=== PATIENT | male | born 1975 | race Caucasian/White ===

== ENCOUNTER → 2016-11-21 | Outpatient (CLI) | payer OTHER ==
[~2016-11-21] MED LIST: ACET-1256 PO; BACL10TA PO; IBUP-1451 PO; morphine INT SPINAL
--- NOTE | 2016-11-21 13:36 | DIAGNOSTIC IMAGING REPORT ---
CERVICAL SPINE 7 VIEWS CLINICAL HISTORY: Chronic neck pain. FINDINGS: AP, lateral, flexion, extension, bilateral oblique, and odontoid views of the cervical spine are obtained. No prior studies are available for comparison at the time of dictation. The skeletal structures are well mineralized. There is no radiographic evidence of fracture or subluxation. The odontoid process and lateral masses appear intact on the open-mouth view. There are postoperative changes from anterior fusion seen from C4 to C6. There is evidence of discectomy at these levels with near complete bony incorporation. There is associated straightening of the cervical lordosis. No inducible bony subluxation is seen on the flexion/extension views. The spinolaminar line is preserved. The atlantodental articulation appears maintained noting mild productive degenerative change. The C2-C3, C3-C4, and C6-C7 disc spaces appear preserved. The spinous processes appear intact. The neural foramina appear widely patent on the oblique views. The prevertebral soft tissues are within normal limits. Partially imaged lung parenchyma appears clear. IMPRESSION: 1. No acute bony abnormality is seen in the cervical spine. 2. No bony subluxation is identified on the flexion/extension views. 3. There are postoperative changes from anterior fusion seen at C4-C6. Dictated: 11/21/2016 1:09 PM Transcribed: 11/21/2016 1:35 PM Jose M Electronically signed by: Jack Blanco M.D. 11/21/2016 1:53 PM Dictated Date/Time: 11/21/2016 1:09 PM
== END | disposition home or self-care (01) ==
LOC: C.RADBC 12:13
PROVIDERS: ATTEND Anesthesiology
DX: M54.2 Cervicalgia (principal); Z98.890 Other specified postprocedural states

== ENCOUNTER → 2016-12-15 | Outpatient (CLI) | payer OTHER ==
[~2016-12-15] MED LIST changes: +EZET10TA63 PO; +GADAVIST IV PRN
--- NOTE | 2016-12-15 09:10 | DIAGNOSTIC IMAGING REPORT ---
CERVICAL SPINE MRI WITH AND WITHOUT CONTRAST HISTORY: Postprocedural pain. Radiculopathy. CERVICAL POST CHAPMAN TECHNIQUE: Multiplanar multisequence MRI of the cervical spine was performed both before and after the use of intravenous contrast. COMPARISON STUDY: None. FINDINGS: Findings consistent anterior cervical fusion at C4-C5 and C6. Alignment is anatomic. Signal characteristics the osseous structures are unremarkable. Vertebral body alignment is within normal limits. Vertebral disc signal is unremarkable. Signal characteristics the cervical cord are unremarkable. C2-C3: No significant central canal or neural foraminal narrowing. C3-C4: No significant central canal or neural foraminal narrowing. C4-C5: Minimal broad-based disc bulge. No significant impact with cervical cord. C5-C6: No significant central canal or neural foraminal narrowing. C6-C7: No significant central canal or neural foraminal narrowing. C7-T1: No significant central canal or neural foraminal narrowing. IMPRESSION: 1. Findings consistent with an anterior cervical fusion from C4 through C6. 2. Alignment is anatomic. 3. Slight broad-based disc bulge C4-C5 showing no significant impact with cervical cord or neural foramina. 4. No evidence for disc herniation or spinal stenosis. Electronically signed by: Brett Bravo M.D. 12/15/2016 9:08 AM Dictated Date/Time: 12/15/2016 9:04 AM
== END | disposition home or self-care (01) ==
LOC: C.MRIBC 07:52
PROVIDERS: ATTEND Physician Assistant
DX: M96.1 Postlaminectomy syndrome, not elsewhere classified (principal); M54.2 Cervicalgia

== ENCOUNTER → 2016-12-19 | Outpatient (CLI) | payer OTHER ==
[~2016-12-19] MED LIST changes: -GADAVIST IV PRN
[2016-12-19 15:10] LABS: CALCIUM 9.2 mg/dl (8.5-10.1)
[2016-12-19 15:12] LABS: ALT/SGPT 32 U/L (12-78); BLOOD UREA NITROGEN 17 mg/dl (7-18); BUN/CREATININE RATIO 15.2 (10-20); CARBON DIOXIDE 31 mmol/L (21-32); CHLORIDE 104 mmol/L (98-107); CHOLESTEROL 198 mg/dl (0-200); GLUCOSE 105 mg/dl (70-99); POTASSIUM 4.3 mmol/L (3.5-5.1); SODIUM 141 mmol/L (136-145); TRIGLYCERIDES 81 mg/dl (0-150); VERY LOW DENSITY LIPOPROT CALC 16 mg/dl
[2016-12-19 15:16] LABS: ALB/GLOB RATIO 1.2 (0.9-2); ALKALINE PHOSPHATASE 82 U/L (45-117); AST/SGOT 16 U/L (15-37); CHOLESTEROL/HDL RATIO 4.4; HDL CHOLESTEROL 45 mg/dl; LDL CHOLESTEROL CALCULATED 137 mg/dl
== END | disposition home or self-care (01) ==
LOC: C.LABBC 08:52
PROVIDERS: ATTEND Family Medicine Sports Medicine
DX: E78.2 Mixed hyperlipidemia (principal)

== ENCOUNTER 2018-01-14 14:27 | Emergency (ER) | payer OTHER ==
[~2018-01-14] VITALS: Ht 175.3 cm; Wt 87.5 kg
[2018-01-14 14:34] VITALS: TEMP 36.5; Ht 175.3 cm; Wt 87.5 kg
[2018-01-14] MEDS ORDERED: DOXYCYCLINE HYCLATE 100 MG CAP PO ONE (15:00)
--- NOTE | 2018-01-14 15:09 | EMERGENCY ROOM VISIT NOTE ---
ED Visit Note First contact with patient: 14:43 CHIEF COMPLAINT: Tick bite HISTORY OF PRESENT ILLNESS: This 42-year-old male patient noticed a tick embedded in his right flank yesterday afternoon. He states he believes the tick was attached for more than 24 hours and noted that it was engorged. He did attempt to remove the tick, but states there are still parts left in the skin. He denies any fevers or chills, unusual rash, joint pain, persistent headaches, chest pain, shortness of breath, abdominal pain, or vomiting. REVIEW OF SYSTEMS: A complete 6 point review of systems was reviewed with the patient with pertinent positives and negatives as per history of present illness. All else were negative. PMH: He reports previous neck surgeries. The patient is otherwise healthy with no significant medical history. SOCIAL HISTORY: Patient lives at home. Non-smoker, occasional alcohol use. PHYSICAL EXAM: Vital Signs: Reviewed Nurse's notes. There is a small zone of inflammation and ecchymosis around the spot where the tick was on the right flank. The skin is otherwise clear. NEUROLOGICAL: Alert and cooperative. Sensory and motor functions grossly intact. ED COURSE: I examined the patient. There is a part of the tick mouth still retained in the skin. I obtained verbal consent from the patient to perform the procedure. Skin was cleansed with chlorhexidine. Using a #15 blade scalpel , took parts of her easily removed. Skin was again cleansed with chlorhexidine , bacitracin ointment and a Band-Aid were applied over the site. Given the unknown amount of time for tick attachment, with concern for greater than 48 hours, patient was treated with a single dose of p.o. doxycycline 200 mg. Patient was educated regarding wound care, follow-up, and return precautions, he verbalized understanding. Patient was discharged home in stable condition and ambulatory. Medication Reconciliation: I attest that I have personally reviewed the patient' s current medication list. Patient was noted to have an elevated blood pressure, which was felt to be situational. Current/Historical Medications Scheduled Baclofen (Lioresal), 10 MG PO PRN UD Ezetimibe (Zetia), 10 MG PO DAILY Multivitamins/Minerals (Mvi With Minerals), 1 TAB PO DAILY [morphine], 0.7651 MG INT SPINAL 24hours Scheduled PRN Ibuprofen (Advil), 600 MG PO Q6H PRN for Pain Allergies Coded Allergies: Methylprednisolone (Verified Allergy, Severe, ANAPHYLAXIS TO STEROID INJECTIONS (TOLERATES PO PREDNISONE), 11/01/17) Pravastatin (Verified Allergy, Unknown, UNKNOWN PER PT, 11/01/17) Simvastatin (Verified Allergy, Unknown, UNKNOWN PER PT, 11/01/17) Cyclobenzaprine (Verified Adverse Reaction, Intermediate, HALLUCINATIONS, 11/01/17) Vital Signs Date Time Temp Pulse Resp B/P (MAP) Pulse Ox O2 Delivery O2 Flow Rate FiO2 01/14/18 15:29 78 18 133/78 97 01/14/18 14:34 36.5 75 18 142/100 97 Room Air Medications Administered Medications (Trade) Dose Ordered Sig/Diandra Route Start Time Stop Time Status Last Admin Dose Admin Doxycycline Hyclate (Vibramycin Cap) 200 mg ONE ONCE PO 01/14/18 15:00 01/14/18 15:01 DC 01/14/18 15:12 200 MG Departure Information Impression Primary Impression: Tick bite Dispostion Home / Self-Care Condition GOOD Referrals Hector Cottrell D.O. (PCP) Patient Instructions ED Bite Tick Abx Tx, ED Facts Tick, My [facility] Additional Instructions You have been evaluated and treated in the emergency department today for your tick bite. Keep the area clean. Monitor for any signs of infection, including increasing pain, redness, swelling, pus drainage, streaking, fevers or chills. Please follow-up with your primary care provider as needed, especially if you would develop any symptoms of headaches, body aches, joint pain, unusual rash, fever/chills, or for any other concerns. Problem Qualifiers Primary Impression: Tick bite Encounter type: initial encounter Qualified Codes: W57.XXXA - Bitten or stung by nonvenomous insect and other nonvenomous arthropods, initial encounter
[2018-01-14] MEDS ORDERED: IBUP-1050 PO (15:10)
[2018-01-14] MEDS ORDERED: MULT-513 PO (15:12)
[2018-01-14 15:29] VITALS: BP 133/78; PULSE 78; O2SAT 97
== END 2018-01-14 15:30 | disposition home or self-care (01) ==
LOC: C.EDB 14:28 → C.EDD 15:30
DX: T14.8XXA Other injury of unspecified body region, initial encounter (principal); W57.XXXA Bitten or stung by nonvenomous insect and other nonvenomous arthropods, initial encounter; Z88.8 Allergy status to other drugs, medicaments and biological substances

== ENCOUNTER 2021-05-04 05:51 | Observation (INO) ==
--- NOTE | 2021-04-19 12:43 | PAT Medication Instructions ---
Medication Instructions Date of Service April 19, 2021 Home Medications Medication Instructions Recorded pantoprazole 40 mg tablet,delayed 40 mg PO BID 30 Days #60 tab 07/08/20 release (Protonix) naloxone 4 mg/actuation nasal spray 1 spray INTRANASAL Q3M PRN #2 ea 09/18/20 ibuprofen 600 mg tablet 600 mg PO TID PRN acetaminophen 325 mg capsule (Tylenol) 325 mg PO Q6H PRN baclofen 500 mcg/mL intrathecal solution 500 mcg IT UD epinephrine 0.3 mg/0.3 mL injection, auto-injector 0.3 ml IM .USE DIRECTED. Antacid Tablet 1 dose PO QAM morphine 1 dose INTRATHECAL UD multivitamin 1 tab PO QAM pantoprazole 40 mg tablet,delayed release (Protonix) 40 mg PO BID naloxone 4 mg/actuation nasal spray 1 spray INTRANASAL Q3M PRN trazodone 100 mg tablet 100 mg PO UD PRN Continue as directed epinephrine 0.3 mg/0.3 mL injection, auto-injector 0.3 ml IM .USE DIRECTED (if needed) naloxone 4 mg/actuation nasal spray 1 spray INTRANASAL Q3M PRN (if needed) baclofen 500 mcg/mL intrathecal solution 500 mcg IT UD morphine 1 dose INTRATHECAL UD ASK your surgeon for instructions ibuprofen 600 mg tablet 600 mg PO TID PRN DO NOT take the morning of surgery Antacid Tablet 1 dose PO QAM multivitamin 1 tab PO QAM Take morning of surgery With a small sip of water, OTHERWISE NOTHING TO EAT OR DRINK AFTER MIDNIGHT: acetaminophen 325 mg capsule (Tylenol) 325 mg PO Q6H PRN (okay to take up to 4 hours prior to surgery if needed) pantoprazole 40 mg tablet,delayed release (Protonix) 40 mg PO BID Take evening before surgery acetaminophen 325 mg capsule (Tylenol) 325 mg PO Q6H PRN (if needed) pantoprazole 40 mg tablet,delayed release (Protonix) 40 mg PO BID trazodone 100 mg tablet 100 mg PO UD PRN (if needed) Other Notes If you have any questions please call us at [phone] or [phone] or [phone] or [phone]
--- NOTE | 2021-04-22 09:16 | Anesthesiology Consultation ---
Date of Service April 22, 2021 Assessment & Plan (1) Encounter for pre-operative examination: COVID screening: Per assessment on 04/22: Travel screen negative, no known COVID- 19 positive contacts or current COVID-19 related symptoms. Surgeon arranging preop COVID testing. Awaiting results. Due to mask-wearing non-compliance in public setting, will order [place] AM DOS (or cepheid if [place] supply limited). Chart Review Chart Review: Acceptable Risk for Surgery and Patient seen in Pre Admission Testing History Surgery Operation Date: 05/04/21 07:30 Proposed Procedures p Revision of Replacement of Intrathecal Catheter with Replacement of Intrathecal Pain Pump - Hamilton Palacio MD, FIPP Height/Weight Height: 5 ft 9 in Weight: 87.6 kg Allergies Allergy/AdvReac Type Severity Reaction Status Date / Time bee venom protein (honey bee) Allergy Severe Anaphylaxis Verified 04/19/21 10:44 methylprednisolone Allergy Severe Anaphylaxis Verified 04/19/21 14:33 to steroid injection (tolerates oral per pt) pravastatin Allergy Unknown Unknown Verified 04/19/21 14:33 simvastatin Allergy Unknown Unknown Verified 04/19/21 14:33 cyclobenzaprine AdvReac Intermediate Hallucinati Verified 04/19/21 14:33 ons medrol dose pack Allergy Severe Anaphylaxis Uncoded 04/19/21 10:44 Medications Home Medications Medication Instructions Recorded Confirmed Last Taken ibuprofen 600 mg tablet 600 mg PO TID PRN 07/18/18 04/19/21 06/29/20 acetaminophen 325 mg capsule 325 mg PO Q6H PRN 09/02/19 04/19/21 06/27/20 (Tylenol) baclofen 500 mcg/mL intrathecal 500 mcg IT UD 11/26/19 04/19/21 06/30/20 solution epinephrine 0.3 mg/0.3 mL 0.3 ml IM .USE DIRECTED. ea 11/26/19 04/19/21 Unknown injection, auto-injector Antacid Tablet 1 dose PO QAM 06/24/20 04/19/21 06/23/20 morphine 1 dose INTRATHECAL UD 06/24/20 04/19/21 06/30/20 multivitamin 1 tab PO QAM 06/24/20 04/19/21 06/28/20 pantoprazole 40 mg tablet,delayed 40 mg PO BID 30 Days #60 tab 07/08/20 04/19/21 Unknown release (Protonix) naloxone 4 mg/actuation nasal spray 1 spray INTRANASAL Q3M PRN #2 ea 09/18/20 04/19/21 Unknown clonidine HCl 0.1 mg tablet 0.1 mg PO BID PRN #40 tab 04/19/21 Unknown hydrocodone 5 mg-acetaminophen 325 1 tab PO Q6H PRN #28 tab 04/19/21 Unknown mg tablet trazodone 100 mg tablet 100 mg PO UD PRN 04/19/21 04/19/21 Unknown Past Medical History Medical History Bladder neoplasm Under surveillance Borderline hyperlipidemia Calculus of kidney Cervical pain Cervical postlaminectomy syndrome Depressive disorder GERD (gastroesophageal reflux disease) History of migraine Lumbar pain Presence of intrathecal pump Sleep apnea Non-compliant with CPAP r/t positional pain when sleeping Spinal stenosis Thoracic back pain Exercise / Class Metabolic Activity III < 4 Walking/Shop/Light housework Past Family History Family History Father Spine pain Other No family history of adverse response to anesthesia Past Surgical History Surgical History H/O spinal fusion C4-C6 fusion (+ cervical extension limitations) History of colonoscopy History of esophagogastroduodenoscopy (EGD) EGD (06/30/20): MAC at [facility] History of microdiscectomy History of wisdom tooth extraction Past Anesthesia History No Family Hx of Anesthesia Complications and Other (Awareness ("woke up") with cervical fusion per pt d/t surgery being almost done) History of PONV No Hx of PONV and Hx of Motion Sickness Social History Smoking Status: Never smoker Do You Dip or Chew Tobacco: No Hx Alcohol Use: No Hx Substance Use: No substance use type: does not use Review of Systems Chronic atypical chest pain r/t musculoskeletal pain x several years. Patient denies shortness of breath, dyspnea on exertion, reflux, cough, wheezing, palpitations. Physical Exam Vital Signs VITALS BP 123/82 P 79 TEMP 98.5 SP02 95%RA RESP 18 PHYSICAL Full cervical extension range of motion. Full TMJ range of motion. TMD 3 finger breaths Mallampati Score 2 Dentition: intact Lungs: clear throughout to auscultation Cardiac: regular rate and rhythm, no murmurs noted Spine: normal Carotid arteries: negative bruit Extremities: no edema Lab Results Anesthesia Preop Results Results Anesthesia Widget: WBC 4.48 K/uL (4.8-10.8) L 04/22/21 Hgb 15.1 g/dL (14.0-18.0) 04/22/21 Hct 43.1 % (42-52) 04/22/21 Plt 150 K/uL (130-400) 04/22/21 Na 138 mmol/L (136-145) 04/22/21 K 3.9 mmol/L (3.5-5.1) 04/22/21 Cl 107 mmol/L (98-107) 04/22/21 CO2 26 mmol/L (21-32) 04/22/21 BUN 21 mg/dl (7-18) H 04/22/21 Creat 1.02 mg/dl (0.6-1.4) 04/22/21 Glucose Level 95 mg/dl (70-99) 04/22/21 Urine Color Dark Yellow 04/22/21 Urine Appearance Clear (Clear) 04/22/21 Urine pH 5.5 (4.5-7.5) 04/22/21 Urine Specific [place] 1.036 (1.000-1.030) H 04/22/21 Urine Protein Trace (Negative) H 04/22/21 Urine Glucose (UA) Negative (Negative) 04/22/21 Urine Ketones Trace (Negative) H 04/22/21 Urine Blood Negative (Negative) 04/22/21 Urine Nitrite Negative (Negative) 04/22/21 Urine Bilirubin 1+ (Negative) H 04/22/21 Urine Urobilinogen Negative (Negative) 04/22/21 Urine Leukocyte Esterase Negative (Negative) 04/22/21 Urine WBC (Auto) 1-5 /hpf (0-5) 04/22/21 Urine RBC (Auto) 0-4 /hpf (0-4) 04/22/21 Urine Hyaline Casts (Auto) 1-5 /lpf (0-5) 04/22/21 Urine Epithelial Cells (Auto) 5-10 /lpf (0-5) H 04/22/21 Urine Bacteria (Auto) Negative (Negative) 04/22/21 Testing Electrocardiogram Date: 04/22/21 Findings: + NSR @ (71)
--- NOTE | 2021-05-03 12:49 | History & Physical Report ---
Date of Service May 03, 2021 Assessment & Plan (1) Cervical postlaminectomy syndrome: (2) Presence of intrathecal pump: (3) H/O spinal fusion: (4) MDD (major depressive disorder), recurrent episode, moderate: Plan: 1. Due to his persistently high residuals during intrathecal pump refill and inability to aspirate during catheter access port study has been recommended the patient undergo intrathecal pump/catheter revision/replacement based on intraoperative findings. The patient does have less than 17 months on his current intrathecal pump battery as well. Dose adjustment of his intrathecal morphine will be determined at the time of his pump/catheter r evision/replacement. Intrathecal baclofen will be discontinued for the time being. The patient is currently utilizing morphine 1.0819 mg/day and baclofen 6.491 mcg/day. The inherent risks and potential benefits of the surgical procedure were discussed along with the patient. All his questions were answered. He does like to proceed with the surgical procedure which is currently planned for 05/04/2021. 2. Patient will follow up in pain clinic 1 week and 2 weeks post surgical procedure or before as needed History of Present Illness Chief Complaint: Malfunctioning intrathecal pump Primary Care Provider: Hector Cottrell DO Mr. Whalen is a 46-year-old white male who is well-known to the pain service due to his history of chronic intractable axial neck pain associated with cervical postlaminectomy syndrome which has required implantation of intrathecal pump and catheter delivery system. The patient has been experiencing some high residuals noted during his intrathecal pump refills. An intrathecal catheter access port study was attempted in April which was unsuccessful with inability to aspirate from the catheter access port. Due to these findings there is concern about a mild functional intrathecal catheter and therefore recomme ndations for intrathecal pump/catheter revision. The patient has history of chronic axial neck pain, cervicogenic headaches and bilateral upper extremity pain with paresthesias. Patient has prior history of ACDF C4-6. Patient rates his pain at a 4-10/10. He has significant limitations in his ability complete ambulatory and ADL activities as well as interference of sleep quality and quantity. Patient has significant impact on mood associated with his chronic pain disorder with diagnosis of major depressive disorder which is recurrent. Patient has no further constitutional complaints. Allergies Allergy/AdvReac Type Severity Reaction Status Date / Time bee venom protein (honey bee) Allergy Severe Anaphylaxis Verified 04/19/21 10:44 methylprednisolone Allergy Severe Anaphylaxis Verified 04/19/21 14:33 to steroid injection (tolerates oral per pt) pravastatin Allergy Unknown Unknown Verified 04/19/21 14:33 simvastatin Allergy Unknown Unknown Verified 04/19/21 14:33 cyclobenzaprine AdvReac Intermediate Hallucinati Verified 04/19/21 14:33 ons medrol dose pack Allergy Severe Anaphylaxis Uncoded 04/19/21 10:44 Home Medications Medication Instructions Recorded Confirmed Type ibuprofen 600 mg tablet 600 mg PO TID PRN 07/18/18 04/19/21 History acetaminophen 325 mg capsule 325 mg PO Q6H PRN 09/02/19 04/19/21 History (Tylenol) baclofen 500 mcg/mL intrathecal 500 mcg IT UD 11/26/19 04/19/21 History solution epinephrine 0.3 mg/0.3 mL 0.3 ml IM .USE DIRECTED. ea 11/26/19 04/19/21 History injection, auto-injector Antacid Tablet 1 dose PO QAM 06/24/20 04/19/21 History morphine 1 dose INTRATHECAL UD 06/24/20 04/19/21 History multivitamin 1 tab PO QAM 06/24/20 04/19/21 History pantoprazole 40 mg tablet,delayed 40 mg PO BID 30 Days #60 tab 07/08/20 04/19/21 Rx release (Protonix) naloxone 4 mg/actuation nasal spray 1 spray INTRANASAL Q3M PRN #2 ea 09/18/20 04/19/21 Rx clonidine HCl 0.1 mg tablet 0.1 mg PO BID PRN #40 tab 04/19/21 Rx hydrocodone 5 mg-acetaminophen 325 1 tab PO Q6H PRN #28 tab 04/19/21 Rx mg tablet trazodone 100 mg tablet 100 mg PO UD PRN 04/19/21 04/19/21 History Past Med/Surg History Medical History Bladder neoplasm Under surveillance Borderline hyperlipidemia Calculus of kidney Cervical pain Cervical postlaminectomy syndrome Depressive disorder GERD (gastroesophageal reflux disease) History of migraine Lumbar pain Presence of intrathecal pump Sleep apnea Non-compliant with CPAP r/t positional pain when sleeping Spinal stenosis Thoracic back pain Surgical History H/O spinal fusion C4-C6 fusion (+ cervical extension limitations) History of colonoscopy History of esophagogastroduodenoscopy (EGD) EGD (06/30/20): MAC at 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 Feels Safe at Home: Yes Assistive Devices: Glasses Review of Systems Review of Systems: Constitutional: Negative for fever, chills, sweats Eyes: Negative for eye pain, photophobia, drainage Ear, nose, mouth, throat: Negative for ear pain, nasal congestion, mouth lesions, change in voice Respiratory: Negative for wheezing, sputum production Cardiovascular: Negative for chest pain, palpitations, calf pain Gastrointestinal: Negative for abdominal pain, belching, bloating Genitourinary: Negative for dysuria, urinary incontinence, urinary urgency Musculoskeletal: Negative for deformities Integumentary: Negative for nail changes, skin yellowing, pruritus Neurological: Negative for abnormal speech, seizure type activity Physical Exam Physical Exam: General: Patient sitting quietly in exam room in no acute distress. Speech and thought process appropriate. Mood and affect appropriate. Cognition intact. Head: Normocephalic and atraumatic. ENT: No evidence of nasal or oral mucosal lesions. Mucous membranes are moist. Eyes: Pupils equal round reactive to light. Neck: Supple without adenopathy. Limited range of motion in all planes. Well- healed anterior incision status post ACDF. Diffuse paravertebral and trapezius muscular tenderness to palpation with spasm and tightness. Spurling's maneuver with increased axial neck pain extending into the shoulders bilaterally. Upper extremities: Strength testing 4/5 throughout without focal deficit. Sensation intact without deficit. Aldo sign negative bilaterally. Chest: Nontender to palpation of the costosternal junction. Cardiac: Regular rate and rhythm without murmur. Lungs: Clear to auscultation no wheeze or rhonchi. Abdomen: Soft and nondistended. No organomegaly. Bowel sounds active. Intrathecal pump present in the left lower quadrant without evidence of edema, erythema or skin breakdown. Incisional site is well approximated. Back/spine: Loss of lumbar lordosis. Nontender over the midline. No focal fa cet or SI joint tenderness. Lower extremities: SLR negative bilaterally. Strength testing 5/5 and equal. Sensation intact without deficit. Neurologic: Cranial nerves grossly intact. Ambulatory function normal.
[2021-05-04] MEDS ORDERED: ceFAZolin 2000MG 2,000 MG/15 ML SYR IV SCH (06:00)
[2021-05-04] MEDS ORDERED: LR 15ML/HR IV SCH (06:00)
[2021-05-04] MEDS ORDERED: DEXAMETHASONE SOD INJ 4 MG/ML VIAL ONE (06:59)
[2021-05-04] MEDS ORDERED: ONDANSETRON INJ 2 MG/ML 2 ML VIAL ONE (06:59)
[2021-05-04] MEDS ORDERED: ROCURONIUM BROMIDE 10 MG/ML 5 ML VIAL IV ONE (06:59)
[2021-05-04] MEDS ORDERED: PROPOFOL IV EMULSION 10 MG/ML 20 ML VIAL IV ONE (06:59)
[2021-05-04] MEDS ORDERED: fentaNYL citrate 100 MCG/2 ML VIAL ONE (07:00)
[2021-05-04] MEDS ORDERED: MIDAZOLAM HCL 1 MG/ML 2ML VIAL ONE (07:00)
[2021-05-04] MEDS ORDERED: LIDOCAINE 2%/EPINEPHRINE 1:100,000 20ML ONE (07:02)
--- NOTE | 2021-05-04 07:18 | History & Physical Bridge Note ---
Date of Service May 04, 2021 History & Physical Bridge Note History & Physical Bridge Note Alton Whalen is a 46-year-old male with a history of cervical postlaminectomy syndrome with chronic radicular pain in the upper extremities, cervical spine and left lower extremity. Patient is scheduled today for exploration, revision and possible placement of the entire intrathecal medication delivery system. He has a previously implanted medication delivery system but has lost efficacy and experiencing signs of withdrawal intermittently. Evaluation with imaging as well as a catheter dye study demonstrated inability to aspirate spinal fluid through the catheter access port. Therefore, in order to determine if the catheter/pump system is functional, he was offered exploration of the catheter and revision or replacement as necessary based on intraoperative findings. Patient's past medical history, surgical history, medication and allergy list has been reviewed and no changes noted since his last history and physical examination performed. Review of systems is negative for any cardiac, pulmonary, GI, , endocrine or acute neurological complaints other than what is listed in the HPI section. Physical exam: GENERAL: Patient appears his stated age. Speech and cognition is intact. Mood and affect is appropriate. Sensorium is clear. He is in no acute distress. HEAD: Normocephalic; atraumatic. EYES: Pupils are round, equal, and reactive to light. EOM intact. Mucous membranes moist and pink. No oral lesions noted. ENT: No external ear discharge or lesions. No rhinorrhea or epistaxis. No mucosal lesions. NECK: Full ROM. Trachea is midline. No thyromegaly. No cervical l ymphadenopathy. Carotids without bruit. CARDIAC: Regular rate and rhythm. [No murmur or gallops noted.] CHEST: Regular chest respiration and excursion. Lungs are clear to auscultation. ABDOMEN: No organomegaly appreciated. Bowel sounds are [hypoactive]. EXTREMITIES: Full ROM and +5 strength of bilateral lower extremities. Distal sensation and pulses intact bilaterally. BACK: Tender cervical spine. Normal curvatures. NEURO: Cranial nerves II-XII grossly intact with no focal deficits noted. Deep tendon reflexes in the upper and the lower extremities are symmetrical. Sensation and motor strength testing is unremarkable. SKIN: No lesions, erythema, or rashes noted. ASSESSMENT: Non functioning intrathecal medication delivery system. RECOMMENDATIONS: Explore, revise or replace intrathecal delivery system. History reviewed, examination performed, pertinent laboratory and imaging studies reviewed. No changes form previous H&P. No contraindications noted to proceeding with the propose. Potential risks including infection, bleeding, hematoma or seroma formation at the wound sites, nerve injury, injury to the spinal cord, dural puncture with persistent cerebrospinal fluid leak, malfunction of the pump, breakage and migration of the catheter, additional surgical procedures to correct these complications as well as persistent symptoms after the procedure and risks associated with anesthesia. Patient was also informed that the pump will require routine refills on an ongoing basis. Alternative treatments were also discussed. Patient's questions were answered and gives informed consent to proceed with the proposed procedure. [Consent statement]
[2021-05-04] MEDS ORDERED: ONDANSETRON INJ 2 MG/ML 2 ML VIAL IV PRN (07:23)
[2021-05-04] MEDS ORDERED: ATROPINE SULFATE 0.1 MG/ML 10ML SYR IV PRN (07:23)
[2021-05-04] MEDS ORDERED: ePHEDrine sulfate 50 MG/ML AMP IV PRN (07:23)
[2021-05-04] MEDS ORDERED: fentaNYL citrate 100 MCG/2 ML VIAL IV PRN (07:23)
[2021-05-04] MEDS ORDERED: KETAMINE 50 MG/5 ML SYRINGE ONE (08:09)
[2021-05-04] MEDS ORDERED: NEOSTIGMINE METHYLSULFATE 1 MG/ML 10ML VIAL ONE (08:40)
[2021-05-04] MEDS ORDERED: LIDOCAINE 2% 2 ML VIAL/AMP(20MG/ML) INFIL ONE (08:40)
[2021-05-04] MEDS ORDERED: GLYCOPYRROLATE 0.2 MG/ML VIAL ONE (08:40)
[2021-05-04] MEDS ORDERED: IOPAMIDOL INJ 61% 15 ML VIAL INJ SCH (09:15)
--- NOTE | 2021-05-04 09:49 | Operative Report ---
Post Operative Report Pre & Post Diagnosis Operation Date: 05/04/21 07:30 Pre-Op Diagnosis: Malfunction of Intrathecal Catheter Post-Op Diagnosis: Malfunction of Intrathecal Catheter I identified the patient and participated in the time-out.: Yes Procedure Operation Date: 05/04/21 07:30 Actual Procedures p Intrathecal Pain Pump Replacement, Pocket revision, Catheter Exploration, Catheter Access Port Study, Reprogramming and Analysis(Left) - Jenny Todd DO Surgeon Jenny Todd DO Hospitality Job Titles none Estimated Blood Loss 5 Findings Consistent with Post-Op Diagnosis Fluids per anes record Specimens none Drains none Anesthesia Type General Complications none Disposition Accompanied Patient To Recovery: No Disposition: Recovery Room Indications Malfunctioning intrathecal pump, end-of-life intrathecal pump Description of Procedure PROCEDURE PERFORMED: Intrathecal pump replacement, pocket revision, catheter exploration, catheter access port study, pump interrogation, reprogramming, and analysis. PREOPERATIVE DIAGNOSIS: End of life and malfunctioning intrathecal pump POSTOPERATIVE DIAGNOSIS: Same. COMPLICATIONS: None. ANESTHESIA: General. MATERIAL FORWARDED TO THE LAB: None. INDICATIONS: The patient had an end of life pump and complaints of intermittent withdrawal. The catheter access port study performed prior to this procedure failed to aspirate CSF from the catheter access port. Thus requiring replacement of the intrathecal pump and exploration of the catheter. The patient was explained the risks, benefits, alternatives of the procedure and agreed to proceed as above. Informed consent was obtained and witnessed. A time out was performed after the patient was brought into the Operating Room. Antibiotics were given. The patient was then induced with general anesthesia without complications and was placed in the right lateral position. The skin was prepped with duraprep and betadine and draped in sterile fashion. The existing pump was identified and using a scalpel, electrocautery, and blunt dissection, the existing pump was exposed. The 4 retaining sutures were removed and the old pump was explanted. The catheter access port again failed to produce free-flowing CSF. The ascending catheter appeared to be entrapped in scar tissue at the connection point of the pump segment. The catheter and pump segment connection were dissected utilizing electrocautery. After the catheter was free within the pocket, the catheter access port was able to produced 2 mL of free-flowing CSF without issue. Subsequently, the catheter was disconnected from the old pump and free flowing CSF was noted. The new pump was opened and prepared according to [employer] standards. Fresh pump medication was placed into the new pump. The pump catheter was secured to the new pump according to [email or web address] standards. The catheter access port was again accessed and revealed free flowing CSF. the pocket was slightly enlarged to allow the new intrathecal pump to rest flat against the abdominal wall. Next, the pocket was irrigated with 3 bulb syringes full of sterile normal saline with aqueous iodophor. Hemostasis was achieved. The new pump was placed into the pocket in the 12 O'clock position. The intrathecal pump was anchored in the pocket with 4 0 Prolene sutures. No complications were noted after the intrathecal pump was placed inside the pocket. Aspiration from the catheter access port revealed free flowing CSF. The skin and subcutaneous tissues of both incisions were closed with running 0 strata fix sutures then running subcuticulars (3-O strata fix) and then prineo dermabond without complications. The skin was cleansed and dried followed by 4 x 4's and Tegaderms were placed for closure dressings. No complications were noted throughout the procedure. The patient tolerated the procedure and general anesthesia well and was extubated at the end of the procedure. The patient was then transferred back to the [facility] and was taken to the recovery room in stable condition. The patient will follow up with our clinic within 7 days for a wound check. Pump size inserted: 20ml Medication placed in pump: Morphine 5 mg/mL to run at 0.75 mg/day which reflects a 25% dose reduction. I attest to the content of the Intraoperative Record and any orders documented therein. Any exceptions are noted below.
--- NOTE | 2021-05-04 11:02 | Anesthesiology Progress Note ---
Date of Service May 04, 2021 Anesthesia Post Procedure Vital Signs Vital Signs: Temp Pulse Pulse Resp BP BP Pulse Ox 05/04/21 10:50 70 18 147/93 H 99 05/04/21 10:40 36.3 C L 69 18 142/90 H 100 05/04/21 10:30 68 17 149/100 H 99 05/04/21 10:20 61 14 128/90 100 05/04/21 10:10 68 14 146/90 H 100 05/04/21 10:00 81 16 147/87 H 100 05/04/21 09:50 83 18 155/101 H 98 05/04/21 09:48 36.1 C L 76 18 168/95 H 98 05/04/21 06:22 36.8 C 76 18 146/100 H 97 Pain Intensity Neck: Pain Intensity: 0 Transfer of Care Handoff Completed per policy Notes Mental Status: alert / awake / arousable Patient Amnestic to Procedure: Yes Nausea / Vomiting: adequately controlled Pain: adequately controlled Airway Patency, RR, SpO2: stable & adequate BP & HR: stable & adequate Hydration State: stable & adequate Anesthetic Complications: no major complications apparent
[2021-05-04] MEDS ORDERED: traZODone HCL 100 MG TAB PO PRN (11:34)
[2021-05-04] MEDS ORDERED: ACETAMINOPHEN 325 MG TAB PO PRN (12:09)
[2021-05-04] MEDS ORDERED: ZOLPIDEM TARTRATE 5 MG TAB PO PRN (12:12)
[2021-05-04] MEDS ORDERED: MAGNESIUM CITRATE 296 ML/BTL PO PRN (12:12)
[2021-05-04] MEDS ORDERED: diphenhydrAMINE Capsule 25 MG CAP PO PRN (12:12)
[2021-05-04] MEDS ORDERED: NALOXONE HCL 0.4 MG/1 ML VIAL/CARP IV PRN (12:12)
[2021-05-04] MEDS: PANTOprazole 40 MG TAB PO SCH ×2 (12:22→20:43)
[2021-05-04] MEDS ORDERED: MORPHINE EXT SCH (12:30)
[2021-05-04] MEDS: HYDROCODONE/ACETAMOPHEN 5/325MG TAB PO PRN ×2 (14:13→22:07)
[2021-05-04] MEDS: DOCUSATE SODIUM 100 MG CAP PO SCH ×2 (20:43→22:07)
[2021-05-05] MEDS: HYDROCODONE/ACETAMOPHEN 5/325MG TAB PO PRN (06:17)
[2021-05-05 07:45] VITALS: BP 148/82; TEMP 98.4; O2SAT 96
[2021-05-05] MEDS: DOCUSATE SODIUM 100 MG CAP PO SCH (08:07)
[2021-05-05] MEDS: PANTOprazole 40 MG TAB PO SCH (08:07)
--- NOTE | 2021-05-05 08:38 | Pain Management Progress Note ---
Date of Service May 05, 2021 Assessment & Plan (1) H/O spinal fusion: (2) Presence of intrathecal pump: (3) Cervical postlaminectomy syndrome: Plan: 1. Dressing has been changed today. 2. I will discharge him with some Hydrocodone 5/325mg to take if needed for post operative pain. 3. He will be scheduled for 1 week and 2 week wound checks. Dates and times will be placed on discharge paperwork. Admission and Anticipated Discharge Date Admission Date: May 04, 2021 Subjective Intrathecal catheter revision and pump replacement performed yesterday. Patient is reporting a mild burning pain along the left lower abdominal incision. Neck pain was increased for a few hours after the surgery. He has taken Hydrocodone 5/325mg three times yesterday with relief. This morning he states that his neck pain is back to baseline and he is feeling well. He is ready for discharge. He rates his pain 3/10 currently. No complaints. Physical Exam Physical Exam: GENERAL: This is a 46 year old male in no acute distress. HEAD/FACE: Normocephalic and atraumatic. EYES: No drainage or conjunctival injection. ENT: Nose without bleeding or discharge. Oral mucosa moist. NECK: Full ROM without apparent pain. No swelling or masses noted. RESPIRATORY: Patient with unlabored breathing. No signs of respiratory distress. CHEST/AXILLA: Chest movement symmetrical. No deformities noted. ABDOMEN/GI: No distension. Intrathecal pump is located in the left lower abdomen. Prineo bandage is in place. BACK: Moves without difficulty SKIN: [place], warm and dry. No rash noted. MS/EXTREMITY: No swelling, no deformities. Moving extremities appropriately. NEURO: Alert and appears oriented. Speech is fluent. Cranial Nerves are grossly intact. PSYCH: Alert, pleasant, affect is calm
--- NOTE | 2021-05-05 08:42 | Discharge Summary ---
Date of Service May 05, 2021 Admission HPI Per Admitting Provider Mr. Whalen is a 46-year-old white male who is well-known to the pain service due to his history of chronic intractable axial neck pain associated with cervical postlaminectomy syndrome which has required implantation of intrathecal pump and catheter delivery system. The patient has been experiencing some high residuals noted during his intrathecal pump refills. An intrathecal catheter access port study was attempted in April which was unsuccessful with inability to aspirate from the catheter access port. Due to these findings there is concern about a mild functional intrathecal catheter and therefore rec ommendations for intrathecal pump/catheter revision. The patient has history of chronic axial neck pain, cervicogenic headaches and bilateral upper extremity pain with paresthesias. Patient has prior history of ACDF C4-6. Patient rates his pain at a 4-10/10. He has significant limitations in his ability complete ambulatory and ADL activities as well as interference of sleep quality and quantity. Patient has significant impact on mood associated with his chronic pain disorder with diagnosis of major depressive disorder which is recurrent. Patient has no further constitutional complaints. Admission Exam (Per Admitting) Constitutional General: Patient sitting quietly in exam room in no acute distress. Speech and thought process appropriate. Mood and affect appropriate. Cognition intact. Head: Normocephalic and atraumatic. ENT: No evidence of nasal or oral mucosal lesions. Mucous membranes are moist. Eyes: Pupils equal round reactive to light. Neck: Supple without adenopathy. Limited range of motion in all planes. Well- healed anterior incision status post ACDF. Diffuse paravertebral and trapezius muscular tenderness to palpation with spasm and tightness. Spurling's maneuver with increased axial neck pain extending into the shoulders bilaterally. Upper extremities: Strength testing 4/5 throughout without focal deficit. Sensation intact without deficit. Aldo sign negative bilaterally. Chest: Nontender to palpation of the costosternal junction. Cardiac: Regular rate and rhythm without murmur. Lungs: Clear to auscultation no wheeze or rhonchi. Abdomen: Soft and nondistended. No organomegaly. Bowel sounds active. Intrathecal pump present in the left lower quadrant without evidence of edema, erythema or skin breakdown. Incisional site is well approximated. Back/spine: Loss of lumbar lordosis. Nontender over the midline. No focal facet or SI joint tenderness. Lower extremities: SLR negative bilaterally. Strength testing 5/5 and equal. Sensation intact without deficit. Neurologic: Cranial nerves grossly intact. Ambulatory function normal. Discharge Data Procedures Performed Operation Date: 05/04/21 07:30 Actual Procedures p Pocket Revision of Intrathecal Pain Pump Replacement, Catheter Exploration, Catheter Access Port Study, Reprogramming and Analysis(Left) - Jenny Todd DO Hospital Course (1) Cervical postlaminectomy syndrome: (2) Presence of intrathecal pump: (3) H/O spinal fusion: As the patient continued to report such intermittent withdrawal symptoms and started to have higher reservoir volumes than expected he was agreeable to an early pump replacement and also a revision of the intrathecal catheter. There was successful CSF flow after removing scar tissue surrounding the catheter. Pump was replaced. Patient states that his neck pain is back to it's baseline and he has not had any withdrawal symptoms since surgery. Discharge Instructions Change dressing once daily. Continue to wear abdominal binder 24/ x 4 weeks then only during physical exercise x 4 weeks. Hydrocodone 5/325mg sent to your pharmacy to take if needed for post operative pain. Wound checks scheduled 05/12/21 at 1PM and 05/19/21 at 1PM.
[2021-05-05] MEDS ORDERED: MULTIVITAMIN TAB PO SCH (09:00)
[2021-05-05] MEDS ORDERED: CALCIUM CARBONATE 500 MG CHEWABLE TAB PO SCH (09:00)
[2021-05-05 09:20] VITALS: PULSE 71
== END 2021-05-05 10:43 | disposition home or self-care (01) ==
LOC: 2S 05:51 → ASU 05:51
DX: Z88.8 Allergy status to other drugs, medicaments and biological substances; K21.9 Gastro-esophageal reflux disease without esophagitis; G47.30 Sleep apnea, unspecified; F33.1 Major depressive disorder, recurrent, moderate; E78.5 Hyperlipidemia, unspecified; Z79.899 Other long term (current) drug therapy; M96.1 Postlaminectomy syndrome, not elsewhere classified; Z79.891 Long term (current) use of opiate analgesic; T85.890A Other specified complication of nervous system prosthetic devices, implants and grafts, initial encounter; Y75.2 Prosthetic and other implants, materials and neurological devices associated with adverse incidents

== ENCOUNTER 2022-03-26 20:27 | Observation (INO) ==
[2022-03-26] MEDS ORDERED: NITROGLYCERIN SL 0.4 MG/TAB TAB SL STA ×2 (20:48→22:09)
[2022-03-26] MEDS ORDERED: ASPIRIN CHEW 324 MG PO STA (20:48)
--- NOTE | 2022-03-26 21:11 | XRay Report ---
SINGLE VIEW CHEST CLINICAL HISTORY: Atypical chest pain. Shoulder pain. FINDINGS: An AP, portable, upright chest radiograph is obtained. No prior studies are available for c omparison at the time of dictation. The cardiomediastinal silhouette is unremarkable. There is mild b ibasilar atelectasis. The lungs and pleural spaces are otherwise clear. No pneumothorax is seen. The bony thorax is grossly intact. Fusion hardware is noted in the lower cervical spine. IMPRESSION: No active disease in the chest. ACT 112: Negative or not required by law. Electronically signed by: Jack Blanco M.D. 03/26/2022 9:10 PM
--- NOTE | 2022-03-26 21:12 | Emergency Department Note ---
Impression & Plan Retrosternal chest pain, Neck pain, Hypertension ED Provider Note INFORMANT: Patient ED PROVIDER(S): Jhon Zavala MD CHIEF COMPLAINT: Chest pain PLAN: Disposition: Admitted Condition: Good Outpatient prescription management: none Referral: None MEDICAL DECISION MAKING: Patient presented because of chest pain. He has long history of neck issues and was dealing with some since yesterday. He was significantly hypertensive upon arrival. He has not treated for hypertension. ECG was performed and revealed normal sinus rhythm. Patient was given aspirin and nitroglycerin. Blood work and chest x-ray done. Patient had unremarkable CBC chemistry panel. Troponin negative. D-dimer was mildly elevated. CT imaging was performed and was negative for acute process. The patient was given aspirin and nitroglycerin as noted above and did have some improvement with this. Additional nitroglycerin was given. Given his family history uncontrolled blood pressure, chest pain with nitro improvement further management in the hospital was deemed appropriate. Consultation was made with Dr. Kiel Johnson of the [facility] service. Patient was evaluated in the ER for further management. Triage Nursing notes reviewed and agree them. Vital Signs: reviewed and remarkable for very significant hypertension Differential diagnosis: Cardiac ischemia, aortic dissection, pulmonary embolism, pneumothorax, pneumonia, pericarditis, myocarditis, esophageal rupture, GERD, cholecystitis, pancreatitis, musculoskeletal, as well as other pathologies. Diagnostics interpreted by me: EC Lead ECG performed and revealed Normal sinus rhythm at 85, normal [place], QRS normal. No elevation or depression. No PACs or PVCs Cardiac Monitoring: Cardiac monitoring ordered by me: The patient was placed on continuous cardiac monitoring and observed. It revealed a normal sinus rhythm at 88 beats per minute without ectopy or evidence of dysrhythmia. Imaging studies: Chest x-ray. Findings: A chest x-ray was performed and revealed no pneumothorax, effusion, infiltrate, pulmonary edema, free air under the diaphragm, or wide m ediastinum. Impression: No acute disease. CT PE study negative for acute process. No evidence of dissection or thromboembolic disease. HPI: The patient is a 47year old male who presents to the Emergency Room with complaints of retrosternal chest pain. This started about 45 minutes prior to arrival and is described as burning and pressure. The patient also notes the following associated symptoms, neck and shoulder pain, chronic left arm numbness. Patient has a history of cervical neck issues and chronic pain. He has a pain pump. He does note being told many times in the past that his blood pressure was elevated. He states this was attributed to his pain issues and never was formally treated. He has no significant family history of cardiac dis ease. The patient has found no relieving factors. Current pain is rated as 7/10. Pt denies LOC, headache, fevers, chills, diaphoresis, visual changes, breathing difficulties, nausea, vomiting, abdominal pain, back pain, melena, hematochezia, urinary symptoms, numbness, weakness, lymphadenopathy, rash, or other complaints. ROS: See above HPI for pertinent positives & negatives. A total of 10 systems reviewed and were otherwise negative. PAST MEDICAL HISTORY:See Below , postlaminectomy syndrome, GERD PAST SURGICAL HISTORY:See Below, pain pump implanted in the left abdomen FAMILY HISTORY:See Below SOCIAL HISTORY:See Below, HOME MEDICATIONS:See Below ALLERGIES:See Below VITALS:See Below PHYSICAL EXAMINATION: GENERAL: Awake, alert, uncomfortable-appearing, in no distress HENT: Normocephalic, atraumatic. Oropharynx unremarkable. EYES: Normal conjunctiva. Sclera non-icteric. NECK: Inspection normal. Supple. No nuchal rigidity. FROM. No masses. RESPIRATORY: Clear to auscultation. No wheezes. No rales. Normal respiratory effort. CARDIAC: Normal rate. Normal rhythm. No murmurs. No rubs. Extremities warm and well perfused. Pulses equal. No JVD. GI: Soft, non-distended. No tenderness to palpation. Pain pump in left abdomen. No rebound or guarding. No masses. RECTAL: Deferred. MUSCULOSKELETAL: Atraumatic. Chest examination reveals no tenderness. The back is symmetrical on inspection without obvious abnormality. There is no CVA tenderness to palpation. No joint edema. LOWER EXTREMITIES: Calves are equal size bilaterally and non-tender. No edema. No discoloration. NEURO: Normal sensorium. No sensory or motor deficits noted. SKIN: No rash or jaundice noted. Jhon Zavala MD Past Med/Surg History Medical History Bladder neoplasm Under surveillance Borderline hyperlipidemia Calculus of kidney Cervical pain Cervical postlaminectomy syndrome Depressive disorder GERD (gastroesophageal reflux disease) History of migraine Lumbar pain Presence of intrathecal pump Sleep apnea Non-compliant with CPAP r/t positional pain when sleeping Spinal stenosis Thoracic back pain Urinary dysfunction Surgical History H/O spinal fusion C4-C6 fusion History of colonoscopy History of esophagogastroduodenoscopy (EGD) EGD (06/30/20): [facility] at [facility] History of microdiscectomy History of wisdom tooth extraction Family History Father Spine pain Other No family history of adverse response to anesthesia Social History Smoking Status: Never smoker Second Hand Exposure: Yes (years ago); Hx Alcohol Use: No Hx Substance Use: No Preferred Language: Belarusian Communication Ability: Effective Hearing Ability: Normal Lever Tender Required: No Beliefs That Will Affect Care: None marital status: Current Living Situation: Spouse current occupational status: disabled and 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 How many Children do You have: 3 Feels Safe at Home: Yes Assistive Devices: None Allergies Allergies Allergy/AdvReac Type Severity Reaction Status Date / Time bee venom protein (honey bee) Allergy Severe Anaphylaxis Verified 03/26/22 21:27 methylprednisolone Allergy Severe Anaphylaxis Verified 03/26/22 21:27 to steroid injection (tolerates oral per pt) pravastatin Allergy Unknown Unknown Verified 03/26/22 21:27 simvastatin Allergy Unknown Unknown Verified 03/26/22 21:27 cyclobenzaprine AdvReac Intermediate Hallucinati Verified 03/26/22 21:27 ons Home Meds Home Medications Medication Instructions Recorded Confirmed epinephrine 0.3 mg/0.3 mL 0.3 ml IM UD PRN Allergic Reaction 11/26/19 03/26/22 injection, auto-injector (EpiPen) Previous Rx's Medication Instructions Recorded pantoprazole 40 mg tablet,delayed 40 mg PO BID GERD 1 month #60 tabs 08/31/21 release (Protonix) Results & Data (ED) Vital Signs Vital Signs - 24 hr 03/26/22 20:29 03/26/22 20:43 03/26/22 20:43 Temperature 36.8 C Temperature Source Temporal Artery Scan Pulse Rate 83 88 Pulse Rate [Apical] Pulse Rhythm Regular Pulse Rhythm [Apical] Respiratory Rate 20 18 Respiratory Effort / Characteristics Non-Labored Spontaneous Respiratory Depth Normal Blood Pressure 192/113 H Blood Pressure [Right Arm] Blood Pressure Mean 139 Blood Pressure Mean [Right Arm] Pulse Oximetry 97 98 98 Oxygen Delivery Method Room Air Room Air Room Air Sepsis Recent Fever Within 48 Hours No Sepsis New/Unexplained Change in Mental Status No Sepsis Action Taken by Nursing No Action Required 03/26/22 21:23 03/26/22 22:40 Temperature Temperature Source Pulse Rate Pulse Rate [Apical] 80 73 Pulse Rhythm Pulse Rhythm [Apical] Regular Respiratory Rate 20 20 Respiratory Effort / Characteristics Non-Labored Respiratory Depth Normal Blood Pressure Blood Pressure [Right Arm] 153/111 H 130/91 Blood Pressure Mean Blood Pressure Mean [Right Arm] 125 104 Pulse Oximetry 95 95 Oxygen Delivery Method Room Air Room Air Sepsis Recent Fever Within 48 Hours Sepsis New/Unexplained Change in Mental Status Sepsis Action Taken by Nursing Laboratory Data Result diagrams: 03/26/22 20:55 03/26/22 20:55 Lab Results 03/26/22 03/26/22 03/26/22 Range/Units 20:55 20:55 20:55 WBC 6.55 (4.8-10.8) K/ul RBC 5.09 (4.63-6.08) M/uL Hgb 15.1 (14.0-18.0) g/dl Hct 44.2 (40.1-51.0) % MCV 86.8 (80.0-100.0) fL MCH 29.7 (25.0-34.0) pg MCHC 34.2 (32.0-36.0) g/dL RDW Std Deviation 37.9 (36.4-46.3) fL RDW Coeff of Yossi 11.9 (11.5-14.5) % Plt Count 166 (130-400) K/uL MPV 11.2 (9.4-12.4) fL Immature Gran % (Auto) 0.2 % Neut % (Auto) 55.6 % Lymph % (Auto) 35.4 % [place] % (Auto) 6.1 % Eos % (Auto) 1.8 % Baso % (Auto) 0.9 % Neut # (Auto) 3.64 (1.4-6.5) K/uL Lymph # (Auto) 2.32 (1.2-3.4) K/uL [place] # (Auto) 0.40 (0.24-0.82) K/uL Eos # (Auto) 0.12 (0-0.50) K/uL Baso # (Auto) 0.06 (0-0.2) K/uL Immature Gran # (Auto) 0.01 (0.00-0.02) K/uL D-Dimer 570 H* (0-500) ug/L FEU Sodium 138 (136-145) mmol/L Potassium 3.7 (3.5-5.1) mmol/L Chloride 102 (98-107) mmol/L Carbon Dioxide 30 (21-32) mmol/L Anion Gap 6 (3-11) BUN 21 (6-23) mg/dl Creatinine 1.13 (0.6-1.4) mg/dl Est Cr Clr Drug Dosing 87.4 ml/min Est GFR ( Amer) 89.2 ml/min Est GFR (Non-Af Amer) 77.0 ml/min BUN/Creatinine Ratio 18.6 (10-20) Glucose 103 H (70-99(Fasting)) mg/dl Calcium 9.3 (8.5-10.1) mg/dl Total Bilirubin 0.4 (0.2-1.0) mg/dl AST 17 (13-39) U/L ALT 21 (7-52) U/L Alkaline Phosphatase 65 (34-104) U/L Troponin I High Sens 2.6 (0-20) pg/ml Total Protein 7.5 (6.0-8.3) gm/dl Albumin 4.7 (3.4-5.0) gm/dl Globulin 2.8 (2.5-4.0) gm/dl Albumin/Globulin Ratio 1.7 (0.9-2) Lipase 23 (11-82) U/L Administered Medications Discontinued Medications Aspirin (Aspirin Chew 324 Mg) 324 mg PO NOW STA Stop: 03/26/22 20:49 Last Admin: 03/26/22 21:00 Dose: 324 mg Documented By: ES Ioversol (Optiray 320 125ml) 118 ml IV ONCE ONE Stop: 03/26/22 21:49 Last Admin: 03/26/22 21:52 Dose: 118 ml Documented By: RHD Ketorolac Tromethamine (Ketorolac Tromethamine 15 Mg/Ml Vial) 10 mg IV NOW ONE Stop: 03/26/22 22:11 Last Admin: 03/26/22 22:27 Dose: 10 mg Documented By: BOBBI Metoprolol Tartrate (Metoprolol Tartrate 25 Mg Tab) 25 mg PO NOW STA Stop: 03/26/22 23:08 Last Admin: 03/26/22 23:47 Dose: 25 mg Documented By: RENNY Nitroglycerin (Nitroglycerin Sl 0.4 Mg/Tab Tab) 0.4 mg SL NOW STA Stop: 03/26/22 20:49 Last Admin: 03/26/22 21:39 Dose: 0.4 mg Documented By: BOBBI Nitroglycerin (Nitroglycerin 2% Ointment 30gm Tube) 0.5 inch EXT NOW STA Stop: 03/26/22 22:10 Last Admin: 03/26/22 22:27 Dose: 0.5 inch Documented By: BOBBI Nitroglycerin (Nitroglycerin Sl 0.4 Mg/Tab Tab) 0.4 mg SL NOW STA Stop: 03/26/22 22:10 Last Admin: 03/26/22 22:40 Dose: 0.4 mg Documented By: BOBBI Imaging Data Radiologist's Impression: Chest X-Ray 03/26/22 20:42 SINGLE VIEW CHEST CLINICAL HISTORY: Atypical chest pain. Shoulder pain. FINDINGS: An AP, portable, upright chest radiograph is obtained. No prior studies are available for comparison at the time of dictation. The cardiomediastinal silhouette is unremarkable. There is mild bibasilar atelectasis. The lungs and pleural spaces are otherwise clear. No pneumothorax is seen. The bony thorax is grossly intact. Fusion hardware is noted in the lower cervical spine. IMPRESSION: No active disease in the chest. ACT 112: Negative or not required by law. Electronically signed by: Jack Blanco M.D. 03/26/2022 9:10 PM Chest CTA 03/26/22 21:33 CT ANGIOGRAM OF THE CHEST CLINICAL HISTORY: Atypical chest pain. Elevated d-dimer. COMPARISON STUDY: Chest x-ray dated 03/26/2022. TECHNIQUE: Following the IV administration of 118 cc of Optiray 320, CT angiogram of the chest was performed from the upper abdomen to the thoracic inlet utilizing the pulmonary embolus protocol. Images are reviewed in the axial, sagittal, and coronal planes. 3-D MIPS images are created and assessed. IV contrast was administered without complication. A dose lowering technique was utilized adhering to the principles of ALARA. CT DOSE: 407.13 mGy.cm FINDINGS: Thyroid: Imaged portions of the thyroid gland are normal in size and attenuation. Thoracic aorta: The thoracic aorta is normal in caliber and demonstrates standar d 3-vessel arch anatomy. No dissection is seen. Pulmonary vasculature: The pulmonary trunk is normal in caliber. There are no filling defects identified in main, lobar, or segmental pulmonary branches to suggest pulmonary embolus. Heart: The heart is normal in size and without pericardial effusion. Lungs and pleural spaces: There is mild elevation of the right hemidiaphragm and bibasilar atelectasis. No airspace consolidation or pleural effusion is identified. The trachea and central airways are clear. Mediastinum: There is no mediastinal lymphadenopathy. [place]: Clear. Axillae: There is no axillary lymphadenopathy. Upper abdomen: The spleen is enlarged measuring 15.6 cm in length. Partially visualized upper abdominal viscera is otherwise within normal limits. Skeletal structures: No lytic or blastic bony lesions are seen. Fusion hardware is noted in the lower cervical spine. An intrathecal catheter is in place. The tip is located at the level of T9. IMPRESSION: 1. There is no evidence of pulmonary embolus in the main, lobar, or segmental pulmonary arteries. 2. There is no airspace consolidation or pleural effusion. 3. Splenomegaly. ACT 112: Negative or not required by law. Electronically signed by: Jack Blanco M.D. 03/26/2022 9:59 PM Discharge Plan Visit Data Chief Complaint: Chest Pain Stated Complaint: CHEST PAIN, NECK PAIN, PRESSURE ED Provider: Jhon Zavala Discharge Problem: Retrosternal chest pain, Neck pain, Hypertension Patient Disposition: Admitted As Inpatient Discharge Instructions Interventions: ED Discharge Assessment Last Done: 03/27/22 01:19
[2022-03-26 21:28] LABS: D Dimer 570 ug/L FEU (0-500)
[2022-03-26 21:29] LABS: Basophils # (auto) 0.06 K/uL (0-0.2); Basophils % (auto) 0.9 %; Eosinophils # (auto) 0.12 K/uL (0-0.50); Eosinophils % (auto) 1.8 %; Hematocrit (blood only) 44.2 % (40.1-51.0); Hemoglobin 15.1 g/dl (14.0-18.0); Immature Granulocytes # (auto) 0.01 K/uL (0.00-0.02); Immature Granulocytes % (auto) 0.2 %; Lymphocytes # (auto) 2.32 K/uL (1.2-3.4); Lymphocytes % (auto) 35.4 %; Mean Corpuscular Hemoglobin 29.7 pg (25.0-34.0); Mean Corpuscular Hgb Conc 34.2 g/dL (32.0-36.0); Mean Corpuscular Volume 86.8 fL (80.0-100.0); Mean Platelet Volume 11.2 fL (9.4-12.4); Monocytes % (auto) 6.1 %; Neutrophils # (auto) 3.64 K/uL (1.4-6.5); Neutrophils % (auto) 55.6 %; Platelet Count 166 K/uL (130-400); RDW Coefficient of Variation 11.9 % (11.5-14.5); RDW Standard Deviation 37.9 fL (36.4-46.3); Red Blood Count 5.09 M/uL (4.63-6.08); Troponin I High Sensitivity 2.6 pg/ml (0-20); White Blood Count 6.55 K/ul (4.8-10.8)
[2022-03-26 21:33] LABS: Albumin Globulin Ratio 1.7 (0.9-2); Albumin Level 4.7 gm/dl (3.4-5.0); BUN Creatinine Ratio 18.6 (10-20); Bilirubin,Total 0.4 mg/dl (0.2-1.0); Calcium 9.3 mg/dl (8.5-10.1); Creatinine Clr Calc Pharmacy 87.4 ml/min; Est GFR (African American) 89.2 ml/min; Globulin 2.8 gm/dl (2.5-4.0); Potassium 3.7 mmol/L (3.5-5.1); Total Protein 7.5 gm/dl (6.0-8.3)
[2022-03-26] MEDS ORDERED: OPTIRAY 320 125ml IV ONE (21:48)
--- NOTE | 2022-03-26 22:02 | CT Scan Report ---
CT ANGIOGRAM OF THE CHEST CLINICAL HISTORY: Atypical chest pain. Elevated d-dimer. COMPARISON STUDY: Chest x-ray dated 03/26/2022. TECHNIQUE: Following the IV administration of 118 cc of Optiray 320, CT angiogram of the chest was pe rformed from the upper abdomen to the thoracic inlet utilizing the pulmonary embolus protocol. Images are reviewed in the axial, sagittal, and coronal planes. 3-D MIPS images are created and assessed. I V contrast was administered without complication. A dose lowering technique was utilized adhering to the principles of ALARA. CT DOSE: 407.13 mGy.cm FINDINGS: Thyroid: Imaged portions of the thyroid gland are normal in size and attenuation. Thoracic aorta: The thoracic aorta is normal in caliber and demonstrates standard 3-vessel arch anato my. No dissection is seen. Pulmonary vasculature: The pulmonary trunk is normal in caliber. There are no filling defects identif ied in main, lobar, or segmental pulmonary branches to suggest pulmonary embolus. Heart: The heart is normal in size and without pericardial effusion. Lungs and pleural spaces: There is mild elevation of the right hemidiaphragm and bibasilar atelectasi s. No airspace consolidation or pleural effusion is identified. The trachea and central airways are c lear. Mediastinum: There is no mediastinal lymphadenopathy. [place]: Clear. Axillae: There is no axillary lymphadenopathy. Upper abdomen: The spleen is enlarged measuring 15.6 cm in length. Partially visualized upper abdomin al viscera is otherwise within normal limits. Skeletal structures: No lytic or blastic bony lesions are seen. Fusion hardware is noted in the lower cervical spine. An intrathecal catheter is in place. The tip is located at the level of T9. IMPRESSION: 1. There is no evidence of pulmonary embolus in the main, lobar, or segmental pulmonary arteries. 2. There is no airspace consolidation or pleural effusion. 3. Splenomegaly. ACT 112: Negative or not required by law. Electronically signed by: Jack Blanco M.D. 03/26/2022 9:59 PM
[2022-03-26] MEDS ORDERED: NITROGLYCERIN 2% OINTMENT 30GM TUBE EXT STA (22:09)
[2022-03-26] MEDS ORDERED: KETOROLAC TROMETHAMINE 15 MG/ML VIAL IV ONE (22:10)
--- NOTE | 2022-03-26 23:04 | History & Physical Report ---
Date of Service March 26, 2022 Assessment & Plan (1) Retrosternal chest pain: Plan: Retrosternal chest pain- Unclear etiology The patient will be admitted to telemetry for serial cardiac enzymes, serial EKG's, cardiac rhythm monitoring and a 2-D echocardiogram with Dopplers. Optimize control of blood pressure Control reflux (2) Neck pain: Plan: Neck pain/cervical postlaminectomy syndrome- Patient has been following with pain management, and will continue with intrathecal pump (3) Hypertension: Plan: Uncontrolled hypertension= Per patient, he has been told by pain management there at the visits, that he needs to seek out his PCP and get his blood pressure controlled. Patient was initially given aspirin 324 mg and Nitropaste 1/2 inch along with Toradol 10 mg IV by the ED Discontinue the Nitropaste. Given metoprolol tartrate 25 mg p.o. now and twice daily The patient will be admitted to telemetry for serial cardiac enzymes, serial EKG's, cardiac rhythm monitoring and a 2-D echocardiogram with Dopplers. Aspirin 81 mg every morning Check a fasting lipid panel and hemoglobin A1c (4) Cervical postlaminectomy syndrome: Plan: See above (5) GERD (gastroesophageal reflux disease): Plan: Continue pantoprazole 40 mg p.o. twice daily (6) MDD (major depressive disorder), recurrent episode, moderate: (7) Pain disorder associated with psychological and physical factors: (8) Presence of intrathecal pump: History of Present Illness Chief Complaint: The patient presents to the emergency department with an acute worsening of his chronic neck pain and left arm numbness since the previous day Primary Care Provider: Hector Cottrell DO The patient is a 47-year-old male with a past medical history including major depressive disorder, sleep apnea, GERD, history of cervical spine fusion, presence of intrathecal pump, lumbar pain, thoracic back pain, cervical pain and cervical postlaminectomy syndrome. He reports that his blood pressure has been elevated when he has been seen in the outpatient pain management clinic, even when his pain has been controlled. Upon arrival to emergency department, his blood pressure was significantly elevated, and he was referred for evaluation for admission for elevated blood pressure and chest and shoulder pain. Allergies Allergy/AdvReac Type Severity Reaction Status Date / Time bee venom protein (honey bee) Allergy Severe Anaphylaxis Verified 03/26/22 21:27 methylprednisolone Allergy Severe Anaphylaxis Verified 03/26/22 21:27 to steroid injection (tolerates oral per pt) pravastatin Allergy Unknown Unknown Verified 03/26/22 21:27 simvastatin Allergy Unknown Unknown Verified 03/26/22 21:27 cyclobenzaprine AdvReac Intermediate Hallucinati Verified 03/26/22 21:27 ons Home Medications Medication Instructions Recorded Confirmed Type epinephrine 0.3 mg/0.3 mL 0.3 ml IM UD PRN Allergic Reaction 11/26/19 03/26/22 H istory injection, auto-injector (EpiPen) pantoprazole 40 mg tablet,delayed 40 mg PO BID GERD 1 month #60 tabs 08/31/21 03/26/22 Rx release (Protonix) Past Med/Surg History Medical History Bladder neoplasm Under surveillance Borderline hyperlipidemia Calculus of kidney Cervical pain Cervical postlaminectomy syndrome Depressive disorder GERD (gastroesophageal reflux disease) History of migraine Lumbar pain Presence of intrathecal pump Sleep apnea Non-compliant with CPAP r/t positional pain when sleeping Spinal stenosis Thoracic back pain Urinary dysfunction Surgical History H/O spinal fusion C4-C6 fusion History of colonoscopy History of esophagogastroduodenoscopy (EGD) EGD (06/30/20): MAC at [facility] History of microdiscectomy History of wisdom tooth extraction Family History Father Spine pain Other No family history of adverse response to anesthesia Social History Smoking Status: Never smoker Second Hand Exposure: Yes (years ago); Hx Alcohol Use: No Hx Substance Use: No Preferred Language: Hungarian Communication Ability: Effective Hearing Ability: Normal 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 House Supervisor Required: No Beliefs That Will Affect Care: None marital status: Current Living Situation: Family current occupational status: disabled and other 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 The review of systems is otherwise negative other than for that already noted above, and at least 10 systems have been reviewed. Physical Exam Physical Exam: The patient is awake, alert and oriented 3, well developed and well nourished, normocephalic and atraumatic, lying in bed and in no acute distress. HEENT--PERRL, EOMI, mucous membranes and oropharynx normal Neck--supple. No JVD. No bruits. Thyroid normal, trachea midline, no adenopathy. Heart--normal S1 and S2. No murmurs, rubs or gallops. Lungs--clear bilaterally, no respiratory distress, no accessory muscle use. Abdomen--normal bowel sounds and soft. Nontender. Nondistended, no hernias or masses, no organomegaly. Extremities--no cyanosis or clubbing. No edema. There are good distal pulses b/l. Dermatologic--normal skin turgor, normal color, no abnormal lymph nodes, no rash. Neurologic--cranial nerves II through XII grossly intact. Rheumatologic--exam limited due to right neck and shoulder pain Psychiatric--normal affect. Results & Data Results & Data ([facility]) Vital Signs (Past 12 Hours) Vital Signs Temp Pulse Pulse Resp BP BP Pulse Ox 03/26/22 22:40 73 20 130/91 95 03/26/22 21:23 80 20 153/111 H 95 03/26/22 20:43 88 18 98 03/26/22 20:43 98 03/26/22 20:29 36.8 C 83 20 192/113 H 97 O2 Del Method 03/26/22 22:40 Room Air 03/26/22 21:23 Room Air 03/26/22 20:43 Room Air 03/26/22 20:43 Room Air 03/26/22 20:29 Room Air Laboratory Results Laboratory Results WBC 6.55 K/ul (4.8-10.8) 03/26/22 20:55 RBC 5.09 M/uL (4.63-6.08) 03/26/22 20:55 Hgb 15.1 g/dl (14.0-18.0) 03/26/22 20:55 Hct 44.2 % (40.1-51.0) 03/26/22 20:55 MCV 86.8 fL (80.0-100.0) 03/26/22 20:55 MCH 29.7 pg (25.0-34.0) 03/26/22 20:55 MCHC 34.2 g/dL (32.0-36.0) 03/26/22 20:55 RDW Std Deviation 37.9 fL (36.4-46.3) 03/26/22 20:55 RDW Coeff of Yossi 11.9 % (11.5-14.5) 03/26/22 20:55 Plt Count 166 K/uL (130-400) 03/26/22 20:55 MPV 11.2 fL (9.4-12.4) 03/26/22 20:55 Immature Gran % (Auto) 0.2 % 03/26/22 20:55 Neut % (Auto) 55.6 % 03/26/22 20:55 Lymph % (Auto) 35.4 % 03/26/22 20:55 [place] % (Auto) 6.1 % 03/26/22 20:55 Eos % (Auto) 1.8 % 03/26/22 20:55 Baso % (Auto) 0.9 % 03/26/22 20:55 Neut # (Auto) 3.64 K/uL (1.4-6.5) 03/26/22 20:55 Lymph # (Auto) 2.32 K/uL (1.2-3.4) 03/26/22 20:55 [place] # (Auto) 0.40 K/uL (0.24-0.82) 03/26/22 20:55 Eos # (Auto) 0.12 K/uL (0-0.50) 03/26/22 20:55 Baso # (Auto) 0.06 K/uL (0-0.2) 03/26/22 20:55 Immature Gran # (Auto) 0.01 K/uL (0.00-0.02) 03/26/22 20:55 D-Dimer 570 ug/L FEU (0-500) H* 03/26/22 20:55 Sodium 138 mmol/L (136-145) 03/26/22 20:55 Potassium 3.7 mmol/L (3.5-5.1) 03/26/22 20:55 Chloride 102 mmol/L (98-107) 03/26/22 20:55 Carbon Dioxide 30 mmol/L (21-32) 03/26/22 20:55 Anion Gap 6 (3-11) 03/26/22 20:55 BUN 21 mg/dl (6-23) 03/26/22 20:55 Creatinine 1.13 mg/dl (0.6-1.4) 03/26/22 20:55 Est Cr Clr Drug Dosing 87.4 ml/min 03/26/22 20:55 Est GFR ( Amer) 89.2 ml/min 03/26/22 20:55 Est GFR (Non-Af Amer) 77.0 ml/min 03/26/22 20:55 BUN/Creatinine Ratio 18.6 (10-20) 03/26/22 20:55 Glucose 103 mg/dl (70-99(Fasting)) H 03/26/22 20:55 Calcium 9.3 mg/dl (8.5-10.1) 03/26/22 20:55 Total Bilirubin 0.4 mg/dl (0.2-1.0) 03/26/22 20:55 AST 17 U/L (13-39) 03/26/22 20:55 ALT 21 U/L (7-52) 03/26/22 20:55 Alkaline Phosphatase 65 U/L (34-104) 03/26/22 20:55 Troponin I High Sens 2.7 pg/ml (0-20) 03/27/22 01:42 Total Protein 7.5 gm/dl (6.0-8.3) 03/26/22 20:55 Albumin 4.7 gm/dl (3.4-5.0) 03/26/22 20:55 Globulin 2.8 gm/dl (2.5-4.0) 03/26/22 20:55 Albumin/Globulin Ratio 1.7 (0.9-2) 03/26/22 20:55 Lipase 23 U/L (11-82) 03/26/22 20:55 SARS-CoV-2, RNA, NAAT NEGATIVE (NEGATIVE) 03/26/22 23:50 Impressions Chest X-Ray 03/26/22 20:42 SINGLE VIEW CHEST CLINICAL HISTORY: Atypical chest pain. Shoulder pain. FINDINGS: An AP, portable, upright chest radiograph is obtained. No prior studies are available for comparison at the time of dictation. The cardiomediastinal silhouette is unremarkable. There is mild bibasilar atelectasis. The lungs and pleural spaces are otherwise clear. No pneumothorax is seen. The bony thorax is grossly intact. Fusion hardware is noted in the lower cervical spine. IMPRESSION: No active disease in the chest. ACT 112: Negative or not required by law. Electronically signed by: Jack Blanco M.D. 03/26/2022 9:10 PM Chest CTA 03/26/22 21:33 CT ANGIOGRAM OF THE CHEST CLINICAL HISTORY: Atypical chest pain. Elevated d-dimer. COMPARISON STUDY: Chest x-ray dated 03/26/2022. TECHNIQUE: Following the IV administration of 118 cc of Optiray 320, CT angiogram of the chest was performed from the upper abdomen to the thoracic inlet utilizing the pulmonary embolus protocol. Images are reviewed in the axial, sagittal, and coronal planes. 3-D MIPS images are created and assessed. IV contrast was administered without complication. A dose lowering technique was utilized adhering to the principles of ALARA. CT DOSE: 407.13 mGy.cm FINDINGS: Thyroid: Imaged portions of the thyroid gland are normal in size and attenuation. Thoracic aorta: The thoracic aorta is normal in caliber and demonstrates standard 3-vessel arch anatomy. No dissection is seen. Pulmonary vasculature: The pulmonary trunk is normal in caliber. There are no fi lling defects identified in main, lobar, or segmental pulmonary branches to suggest pulmonary embolus. Heart: The heart is normal in size and without pericardial effusion. Lungs and pleural spaces: There is mild elevation of the right hemidiaphragm and bibasilar atelectasis. No airspace consolidation or pleural effusion is identified. The trachea and central airways are clear. Mediastinum: There is no mediastinal lymphadenopathy. [place]: Clear. Axillae: There is no axillary lymphadenopathy. Upper abdomen: The spleen is enlarged measuring 15.6 cm in length. Partially visualized upper abdominal viscera is otherwise within normal limits. Skeletal structures: No lytic or blastic bony lesions are seen. Fusion hardware is noted in the lower cervical spine. An intrathecal catheter is in place. The tip is located at the level of T9. IMPRESSION: 1. There is no evidence of pulmonary embolus in the main, lobar, or segmental pulmonary arteries. 2. There is no airspace consolidation or pleural effusion. 3. Splenomegaly. ACT 112: Negative or not required by law. Electronically signed by: Jack Blanco M.D. 03/26/2022 9:59 PM Code Status & VTE Plan Code Status Full code VTE Prophylaxis Plan VTE Prophylaxis will be ordered: Yes PG Care Time/CCT Total # of Minutes Spent Total Time Spent with Patient: Total time spent is greater than 50% in coordination of care (as documented) at patient's floor/unit and/or counseling patient: Coding Level of Care Code INT OBSERVATION CARE 70M LVL 3 Diagnoses Retrosternal chest pain R07.2 Neck pain M54.2 Hypertension I10 Cervical postlaminectomy syndrome M96.1 GERD (gastroesophageal reflux disease) K21.9 MDD (major depressive disorder), recurrent episode, moderate F33.1 Pain disorder associated with psychological and physical factors F45.42 Presence of intrathecal pump Z96.89
[2022-03-26] MEDS ORDERED: METOPROLOL TARTRATE 25 MG TAB PO STA (23:07)
[2022-03-27] MEDS ORDERED: ONDANSETRON INJ 2 MG/ML 2 ML VIAL IV PRN (01:27)
[2022-03-27] MEDS: METOPROLOL TARTRATE 25 MG TAB PO SCH ×3 (02:53→20:45)
[2022-03-27] MEDS: PANTOprazole 40 MG TAB PO SCH ×3 (02:53→20:45)
[2022-03-27] MEDS: ACETAMINOPHEN 325 MG TAB PO PRN ×2 (07:42→17:52)
[2022-03-27] MEDS ORDERED: ASPIRIN 81 MG ECTAB PO SCH (09:00)
--- NOTE | 2022-03-27 17:25 | Hospitalist Progress Note ---
Date of Service March 27, 2022 Assessment & Plan (1) Neck pain: Plan: Worsening of samepain management consulted (2) Retrosternal chest pain: Plan: None today, I did not get any history suggestive of angina; echo and follow; lipid panel and A1c reasonable for risk stratification but I do not see indication for stress test; I stopped aspirin (3) Hypertension: Plan: Has elevated blood pressure of some duration; his PCP thought related to being and no treatment initiated; not completely clear underlying hypertension current metoprolol is reasonable; if primary problem is pain needs to be therapy needs to be optimizedpain management consulted (4) Cervical postlaminectomy syndrome: Plan: See above (5) GERD (gastroesophageal reflux disease): Plan: Continue pantoprazole 40 mg p.o. twice daily (6) Presence of intrathecal pump: Plan: As above Admission and Anticipated Discharge Date Admission Date: March 26, 2022 Subjective Follow up of aggravation of chronic neck painno clear angina by my evaluation; no chest pain this a.m. Physical Exam Physical Exam: Constitutional and general: No acute distress, looks biologic age Head and face: No puffiness, atraumatic Eyes: No scleral icterus, extraocular movements normal Neck: Supple, no JVD Musculoskeletal: No acute joint swelling, no bony abnormalities Skin/dermatologic/integument: No rash, no purpura Hematologic and lymphatic: pallor +, no petechia Gastrointestinal/abdomen: Nondistended, soft, nonacute Neurologic: Cranial nerves intact, nonfocal Psychiatry: Awake, alert, pleasant, communicative Cardiovascular: Heart rhythm regular, no rub, no murmur, no gallop Respiratory: Chest movements equal, no use of accessory muscles, no adventitious sounds Extremities: No edema, no cyanosis Results & Data Results & Data ([facility]) Vital Signs (Past 12 Hours) Vital Signs Temp Pulse Resp BP Pulse Ox O2 Del Method 03/27/22 12:12 36.5 C 58 L 18 119/79 97 Room Air 03/27/22 07:40 36.7 C 54 L 18 148/93 H 97 Room Air Laboratory Results Laboratory Results - last 24 hr 03/26/22 03/26/22 03/26/22 20:55 20:55 20:55 WBC 6.55 RBC 5.09 Hgb 15.1 Hct 44.2 MCV 86.8 MCH 29.7 MCHC 34.2 RDW Std Deviation 37.9 RDW Coeff of Yossi 11.9 Plt Count 166 MPV 11.2 Immature Gran % (Auto) 0.2 Neut % (Auto) 55.6 Lymph % (Auto) 35.4 [place] % (Auto) 6.1 Eos % (Auto) 1.8 Baso % (Auto) 0.9 Neut # (Auto) 3.64 Lymph # (Auto) 2.32 [place] # (Auto) 0.40 Eos # (Auto) 0.12 Baso # (Auto) 0.06 Immature Gran # (Auto) 0.01 D-Dimer 570 H* Sodium 138 Potassium 3.7 Chloride 102 Carbon Dioxide 30 Anion Gap 6 BUN 21 Creatinine 1.13 Est Cr Clr Drug Dosing 87.4 Est GFR ( Amer) 89.2 Est GFR (Non-Af Amer) 77.0 BUN/Creatinine Ratio 18.6 Glucose 103 H Calcium 9.3 Total Bilirubin 0.4 AST 17 ALT 21 Alkaline Phosphatase 65 Troponin I High Sens 2.6 Total Protein 7.5 Albumin 4.7 Globulin 2.8 Albumin/Globulin Ratio 1.7 Lipase 23 SARS-CoV-2, RNA, NAAT 03/26/22 03/27/22 03/27/22 23:50 01:42 07:32 WBC RBC Hgb Hct MCV MCH MCHC RDW Std Deviation RDW Coeff of Yossi Plt Count MPV Immature Gran % (Auto) Neut % (Auto) Lymph % (Auto) [place] % (Auto) Eos % (Auto) Baso % (Auto) Neut # (Auto) Lymph # (Auto) [place] # (Auto) Eos # (Auto) Baso # (Auto) Immature Gran # (Auto) D-Dimer Sodium Potassium Chloride Carbon Dioxide Anion Gap BUN Creatinine Est Cr Clr Drug Dosing Est GFR ( Amer) Est GFR (Non-Af Amer) BUN/Creatinine Ratio Glucose Calcium Total Bilirubin AST ALT Alkaline Phosphatase Troponin I High Sens 2.7 3.0 Total Protein Albumin Globulin Albumin/Globulin Ratio Lipase SARS-CoV-2, RNA, NAAT NEGATIVE 03/27/22 13:02 WBC RBC Hgb Hct MCV MCH MCHC RDW Std Deviation RDW Coeff of Yossi Plt Count MPV Immature Gran % (Auto) Neut % (Auto) Lymph % (Auto) [place] % (Auto) Eos % (Auto) Baso % (Auto) Neut # (Auto) Lymph # (Auto) [place] # (Auto) Eos # (Auto) Baso # (Auto) Immature Gran # (Auto) D-Dimer Sodium Potassium Chloride Carbon Dioxide Anion Gap BUN Creatinine Est Cr Clr Drug Dosing Est GFR ( Amer) Est GFR (Non-Af Amer) BUN/Creatinine Ratio Glucose Calcium Total Bilirubin AST ALT Alkaline Phosphatase Troponin I High Sens 2.6 Total Protein Albumin Globulin Albumin/Globulin Ratio Lipase SARS-CoV-2, RNA, NAAT PG Care Time/CCT Total # of Minutes Spent Total Time Spent with Patient: Total time spent is greater than 50% in coordination of care (as documented) at patient's floor/unit and/or counseling patient: Coding Level of Care Code 54721 Subseq Obs Care Lvl 2 Diagnoses Neck pain M54.2 Retrosternal chest pain R07.2 Hypertension I10 Cervical postlaminectomy syndrome M96.1 GERD (gastroesophageal reflux disease) K21.9 Presence of intrathecal pump Z96.89
[2022-03-28 07:38] LABS: Estimated Average Glucose 108 mg/dl; Hemoglobin A1C 5.4 % (4.5-5.6)
[2022-03-28 08:10] LABS: Chol HDL Ratio 5.1 (0-5)
--- NOTE | 2022-03-28 09:02 | Hospitalist Progress Note ---
Date of Service March 28, 2022 Assessment & Plan (1) Neck pain: Plan: Worsening of samepain management consulted (2) Retrosternal chest pain: Plan: None today, I did not get any history suggestive of angina; echo and follow; lipid panel and A1c reasonable for risk stratification but I do not see indication for stress test; I stopped aspirin (3) Hypertension: Plan: Has elevated blood pressure of some duration; his PCP thought related to being and no treatment initiated; not completely clear underlying hypertension current metoprolol is reasonable; if primary problem is pain needs to be therapy needs to be optimizedpain management consulted (4) Cervical postlaminectomy syndrome: Plan: See above (5) GERD (gastroesophageal reflux disease): Plan: Continue pantoprazole 40 mg p.o. twice daily (6) Presence of intrathecal pump: Plan: As above Admission and Anticipated Discharge Date Admission Date: March 26, 2022 Results & Data Results & Data ([facility]) Vital Signs (Past 12 Hours) Vital Signs Temp Pulse Pulse Resp BP Pulse Ox O2 Del Method 03/28/22 07:50 36.6 C 59 L 15 129/84 99 Room Air 03/28/22 03:46 36.5 C 56 L 18 115/73 96 Room Air 03/27/22 23:04 59 L 03/27/22 22:00 36.6 C 54 L 18 141/89 H 98 Room Air Laboratory Results 03/28/22 03/28/22 03/27/22 Range/Units 07:03 07:03 18:58 Estimat Average Glucose 108 mg/dl Hemoglobin A1c 5.4 (4.5-5.6) % Troponin I High Sens 3.0 (0-20) pg/ml Triglycerides 141 (0-150) mg/dl Cholesterol 200 (0-200) mg/dl LDL Cholesterol, Calc 133 mg/dl VLDL Cholesterol, Calc 28 (0-30) mg/dl HDL Cholesterol 39 mg/dl Cholesterol/HDL Ratio 5.1 H (0-5) 03/27/22 Range/Units 13:02 Estimat Average Glucose mg/dl Hemoglobin A1c (4.5-5.6) % Troponin I High Sens 2.6 (0-20) pg/ml Triglycerides (0-150) mg/dl Cholesterol (0-200) mg/dl LDL Cholesterol, Calc mg/dl VLDL Cholesterol, Calc (0-30) mg/dl HDL Cholesterol mg/dl Cholesterol/HDL Ratio (0-5) PG Care Time/CCT Total # of Minutes Spent Total Time Spent with Patient: Total time spent is greater than 50% in coordination of care (as documented) at patient's floor/unit and/or counseling patient: Coding Diagnoses Neck pain M54.2 Retrosternal chest pain R07.2 Hypertension I10 Cervical postlaminectomy syndrome M96.1 GERD (gastroesophageal reflux disease) K21.9 Presence of intrathecal pump Z96.89
--- NOTE | 2022-03-28 09:46 | Pain Management Consultation ---
Date of Consultation March 28, 2022 Assessment & Plan (1) H/O spinal fusion: (2) Presence of intrathecal pump: (3) Cervical postlaminectomy syndrome: (4) Retrosternal chest pain: Plan 1. Do not recommend any changes to his intrathecal pump dosing at this time. He will continue to follow with our office for further adjustments. 2. Awaiting cervical spine MRI that is already scheduled as an outpatient. Do not feel this needs performed as an inpatient currently. 3. Appreciate hospitalist's work-up of retrosternal chest pain. 4. Please call with any questions otherwise we will see him as an outpatient in our office. History of Present Illness Attending Physician: Devante Medrano Allergies Allergy/AdvReac Type Severity Reaction Status Date / Time bee venom protein (honey bee) Allergy Severe Anaphylaxis Verified 03/26/22 21:27 methylprednisolone Allergy Severe Anaphylaxis Verified 03/26/22 21:27 to steroid injection (tolerates oral per pt) pravastatin Allergy Unknown Unknown Verified 03/26/22 21:27 simvastatin Allergy Unknown Unknown Verified 03/26/22 21:27 cyclobenzaprine AdvReac Intermediate Hallucinati Verified 03/26/22 21:27 ons Home Medications Medication Instructions Recorded Confirmed Type epinephrine 0.3 mg/0.3 mL 0.3 ml IM UD PRN Allergic Reaction 11/26/19 03/26/22 History injection, auto-injector (EpiPen) pantoprazole 40 mg tablet,delayed 40 mg PO BID GERD 1 month #60 tabs 08/31/21 03/26/22 Rx release (Protonix) Pain History Chief Complaint Chief Complaint: 47-year-old white male who is well-known to the [facility] pain management office with a history of cervical postlaminectomy syndrome. He was most recently seen on 03/22/2022 for routine intrathecal pump refill. He presented to the ER for chest pain and is undergoing work-up from the hospitalist at this time. He denies any issues with his intrathecal pump and does not request change in dose at this time. He notes continued bilateral global cervical radicular and axial neck pain complaints. He denies new injury or etiology. Pain currently is 7/10 ranging between 4-9/10. He is scheduled for a outpatient cervical spine MRI as work-up for ongoing cervical radicular symptoms. X-ray most recently performed last week was negative for acute change. He denies any change in bowel movements. No complaints of urinary sxs or incontinence at this time. Patient denies fevers, chills, night sweats or other constitutional complaints. Pain Location Full Body Front + Back: 1. 2. 3. Patient History Medical History Bladder neoplasm Under surveillance Borderline hyperlipidemia Calculus of kidney Cervical pain Cervical postlaminectomy syndrome Depressive disorder GERD (gastroesophageal reflux disease) History of migraine Lumbar pain Presence of intrathecal pump Sleep apnea Non-compliant with CPAP r/t positional pain when sleeping Spinal stenosis Thoracic back pain Urinary dysfunction Surgical History H/O spinal fusion C4-C6 fusion History of colonoscopy History of esophagogastroduodenoscopy (EGD) EGD (06/30/20): [facility] at [facility] History of microdiscectomy History of wisdom tooth extraction Family History Father Spine pain Other No family history of adverse response to anesthesia Social History Smoking Status: Never smoker Second Hand Exposure: Yes (years ago); Hx Alcohol Use: No Hx Substance Use: No Preferred Language: Spanish Communication Ability: Effective Hearing Ability: Normal Door Operator Required: No Beliefs That Will Affect Care: None marital status: Current Living Situation: Family current occupational status: disabled and 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 Speech and thought process appropriate. Mood and affect appropriate. Cognition intact. Abdomen: Pump site present in left lower quadrant without evidence of edema, erythema or skin breakdown. Nontender to palpation over the pump site. Neck: Some generalized paravertebral and trapezius tenderness to palpation. Minimal spasm. A few small scattered myoneural trigger points. Slightly diminished range of motion in all planes. Well-healed surgical incision anteriorly. Upper extremities: Strength testing 5/5 and equal. Sensation intact without deficit. Aldo sign negative bilaterally. Back/spine: Loss of lordosis. Lower extremities: SLR negative bilaterally. Neurologic: Cranial nerves grossly intact. Ambulatory function not observed Results (Pain Clinic) Diagnostic Review MRI: no results to review (pending appt) CT: reports reviewed CT Findings: 03/26/22 CT ANGIOGRAM OF THE CHEST CLINICAL HISTORY: Atypical chest pain. Elevated d-dimer. COMPARISON STUDY: Chest x-ray dated 03/26/2022. TECHNIQUE: Following the IV administration of 118 cc of Optiray 320, CT angiogram of the chest was performed from the upper abdomen to the thoracic inlet utilizing the pulmonary embolus protocol. Images are reviewed in the axial, sagittal, and coronal planes. 3-D MIPS images are created and assessed. IV contrast was administered without complication. A dose lowering technique was utilized adhering to the principles of ALARA. CT DOSE: 407.13 mGy.cm FINDINGS: Thyroid: Imaged portions of the thyroid gland are normal in size and attenuation. Thoracic aorta: The thoracic aorta is normal in caliber and demonstrates standard 3-vessel arch anatomy. No dissection is seen. Pulmonary vasculature: The pulmonary trunk is normal in caliber. There are no filling defects identified in main, lobar, or segmental pulmonary branches to suggest pulmonary embolus. Heart: The heart is normal in size and without pericardial effusion. Lungs and pleural spaces: There is mild elevation of the right hemidiaphragm and bibasilar atelectasis. No airspace consolidation or pleural effusion is [place]incito ntified. The trachea and central airways are clear. Mediastinum: There is no mediastinal lymphadenopathy. Roselia: Clear. Axillae: There is no axillary lymphadenopathy. Upper abdomen: The spleen is enlarged measuring 15.6 cm in length. Partially visualized upper abdominal viscera is otherwise within normal limits. Skeletal structures: No lytic or blastic bony lesions are seen. Fusion hardware is noted in the lower cervical spine. An intrathecal catheter is in place. The tip is located at the level of T9. IMPRESSION: 1. There is no evidence of pulmonary embolus in the main, lobar, or segmental pulmonary arteries. 2. There is no airspace consolidation or pleural effusion. 3. Splenomegaly. Radiology: reports reviewed and findings discussed with patient Radiology Findings: 03/22/22 XR cervical [id number] routine CLINICAL HISTORY: M96.1 - Postlaminectomy syndrome, not elsewhere classified TECHNIQUE: AP, lateral, bilateral oblique, and open-jaw images of the cervical spine were obtained. COMPARISON: None available at the time of this dictation. FINDINGS: No fractures or subluxations are identified. Anterior cervical fixation hardware is seen. There is straightening of the normal cervical lordosis. Prevertebral soft tissues are within normal limits. IMPRESSION: Straightening of the cervical spine, which can be seen due to muscle spasm, without underlying bony injury. Anterior cervical fixation hardware is seen.
[2022-03-28] MEDS: PANTOprazole 40 MG TAB PO SCH (10:03)
[2022-03-28] MEDS: METOPROLOL TARTRATE 25 MG TAB PO SCH (10:29)
--- NOTE | 2022-03-28 11:48 | Discharge Summary ---
Date of Service March 28, 2022 Admission HPI Per Admitting Provider The patient is a 47-year-old male with a past medical history including major depressive disorder, sleep apnea, GERD, history of cervical spine fusion, presence of intrathecal pump, lumbar pain, thoracic back pain, cervical pain and cervical postlaminectomy syndrome. He reports that his blood pressure has been elevated when he has been seen in the outpatient pain management clinic, even when his pain has been controlled. Upon arrival to emergency department, his blood pressure was significantly elevated, and he was referred for evaluation for admission for elevated blood pressure and chest and shoulder pain. Admission Exam Per Admitting Provider The patient is awake, alert and oriented 3, well developed and well nourished, normocephalic and atraumatic, lying in bed and in no acute distress. HEENT--PERRL, EOMI, mucous membranes and oropharynx normal Neck--supple. No JVD. No bruits. Thyroid normal, trachea midline, no adenopathy. Heart--normal S1 and S2. No murmurs, rubs or gallops. Lungs--clear bilaterally, no respiratory distress, no accessory muscle use. Abdomen--normal bowel sounds and soft. Nontender. Nondistended, no hernias or masses, no organomegaly. Extremities--no cyanosis or clubbing. No edema. There are good distal pulses b/l. Dermatologic--normal skin turgor, normal color, no abnormal lymph nodes, no rash. Neurologic--cranial nerves II through XII grossly intact. Rheumatologic--exam limited due to right neck and shoulder pain Psychiatric--normal affect. Principal Diagnosis Atypical Chest Pain, Hypertension Discharge Exam General: WD/WN male sitting up in bed, NAD HEENT: head normocephalic, atraumatic, mmm, trachea midline without deviation, pupils equal in size, anicteric, +thick neck Resp: CTAB, no w/c/r, on room air CV: RRR, no m/r/g, no edema GI: +BS, soft, nontender Neuro/Msk: moves all extremities, strength equal throughout, no focal deficit skin: warm, dry , well perfused Discharge Data Allergies Allergy/AdvReac Type Severity Reaction Status Date / Time bee venom protein (honey bee) Allergy Severe Anaphylaxis Verified 03/26/22 21:27 methylprednisolone Allergy Severe Anaphylaxis Verified 03/26/22 21:27 to steroid injection (tolerates oral per pt) pravastatin Allergy Unknown Unknown Verified 03/26/22 21:27 simvastatin Allergy Unknown Unknown Verified 03/26/22 21:27 cyclobenzaprine AdvReac Intermediate Hallucinati Verified 03/26/22 21:27 ons Consultations 03/26/22 23:38 ED Decision to Admit Stat 03/27/22 08:04 Consult Pain Management Routine Ordered Studies Chest X-Ray 03/26/22 20:42 SINGLE VIEW CHEST CLINICAL HISTORY: Atypical chest pain. Shoulder pain. FINDINGS: An AP, portable, upright chest radiograph is obtained. No prior studies are available for comparison at the time of dictation. The cardiomediastinal silhouette is unremarkable. There is mild bibasilar atelectasis. The lungs and pleural spaces are otherwise clear. No pneumothorax is seen. The bony thorax is grossly intact. Fusion hardware is noted in the lower cervical spine. IMPRESSION: No active disease in the chest. ACT 112: Negative or not required by law. Electronically signed by: Jack Blanco M.D. 03/26/2022 9:10 PM Chest CTA 03/26/22 21:33 CT ANGIOGRAM OF THE CHEST CLINICAL HISTORY: Atypical chest pain. Elevated d-dimer. COMPARISON STUDY: Chest x-ray dated 03/26/2022. TECHNIQUE: Following the IV administration of 118 cc of Optiray 320, CT angiogram of the chest was performed from the upper abdomen to the thoracic inlet utilizing the pulmonary embolus protocol. Images are reviewed in the axial, sagittal, and coronal planes. 3-D MIPS images are created and assessed. IV contrast was administered without complication. A dose lowering technique was utilized adhering to the principles of ALARA. CT DOSE: 407.13 mGy.cm FINDINGS: Thyroid: Imaged portions of the thyroid gland are normal in size and attenuation. Thoracic aorta: The thoracic aorta is normal in caliber and demonstrates standard 3-vessel arch anatomy. No dissection is seen. Pulmonary vasculature: The pulmonary trunk is normal in caliber. There are no filling defects identified in main, lobar, or segmental pulmonary branches to suggest pulmonary embolus. Heart: The heart is normal in size and without pericardial effusion. Lungs and pleural spaces: There is mild elevation of the right hemidiaphragm and bibasilar atelectasis. No airspace consolidation or pleural effusion is identified. The trachea and central airways are clear. Mediastinum: There is no mediastinal lymphadenopathy. [place]: Clear. Axillae: There is no axillary lymphadenopathy. Upper abdomen: The spleen is enlarged measuring 15.6 cm in length. Partially visualized upper abdominal viscera is otherwise within normal limits. Skeletal structures: No lytic or blastic bony lesions are seen. Fusion hardware is noted in the lower cervical spine. An intrathecal catheter is in place. The tip is located at the level of T9. IMPRESSION: 1. There is no evidence of pulmonary embolus in the main, lobar, or segmental pulmonary arteries. 2. There is no airspace consolidation or pleural effusion. 3. Splenomegaly. ACT 112: Negative or not required by law. Electronically signed by: Jack Blanco M.D. 03/26/2022 9:59 PM ECHOCARDIOGRAM LV normal in size. Normal LV wall thickness. LV systolic function normal. EF 55- 60%. The LV wall motion is normal. The RV is normal in size and function. RV systolic pressure is normal. Normal LA pressures. Hospital Course (1) Retrosternal chest pain: Admitted with chest pain in patient with long history of neck issues/followed by pain management with strong family history of CAD/DM Troponin negative x 5 ECHO w/o wma CXR negative for PNA CTA negative for PE -- does note enlarged spleen up to 15.6cm incidentally. no lymph nodes. no recent illness rec outpt f/u Elevated BP -- felt related to pain outpatient but never well controlled Started metoprolol 25mg BID with improvement in pressures. No CP Continue 25mg BID and also recommended patient discuss NESTOR/new CPAP alternatives or cleaning in meantime while machine on back order A1c 5.4 Lipid panel with borderline cholesterol, however patient stated worse in past and managed with dietary changes and wanted to avoid starting statin at this time. Rec close f/u w/ PCP and if remains elevated on repeat labs would initiate for prevention Outpatient follow up with PCP and recommend stress testing (2) Neck pain: Worsening of same on presentation. Manageable pain management consulted and rec continue usual regimen and outpatient follow up (3) Hypertension: Has elevated blood pressure of some duration; his PCP thought related to pain States has been elevated at home w/ better pain control as well Metoprolol initiated as above and continuing at discharge. Monitor BP/HR at home and f/u PCP Also needs new CPAP (4) Cervical postlaminectomy syndrome: See above (5) GERD (gastroesophageal reflux disease): Continued pantoprazole 40 mg p.o. twice daily (6) Presence of intrathecal pump: As above (7) Sleep apnea: suspect contributing as cpap on backorder for >1 year in time and had been having success with nasal pillows when he was using device med added as above rec outpt f/u (8) Splenomegaly: uncertain cause seen incidentally on CT chest follow-up needed with PCP for this; patient made aware of this finding Plan discharged home with family Total Time Total Time Spent Total Time Spent (In Minutes): 45 Discharge Plan Discharge Items Patient Disposition: Home - Self-Care Reason For Visit: CHEST PAIN, ELEVATED BLOOD PRESSURE Discharge Diagnosis: Hypertension, Chest Pain Goals: You have been hospitalized for an acute medical problem. During your stay at [facility], we have made an effort to correct the problem that brought you to the hospital while keeping you as comfortable as possible. Medications were used to bring your condition under control and your discharge instructions will include directions for any medications you should take after leaving the hospital. Please make sure you see your Primary Care Provider as part of your follow up plan. Activity: Resume your previous activity Non-emergency contact: Primary Care Provider and Pain Management Call non-emergency contact if: you have any medication questions, your symptoms worsen and your pain is not controlled Follow-up/Referrals: Hector Cottrell DO [Primary Care Provider] - Diet: Heart Healthy Addtl Attending Provider Instructions: You have been hospitalized for chest pain. Troponin (enzyme to measure damage to the heart) was checked and negative on five separate draws. An echocardiogram (ultrasound of your heart) was performed and did not show any evidence for wall motion abnormalities/heart attack. Your blood pressure had been elevated and could have been contributing. You have been started on metoprolol 25mg by mouth TWICE daily and blood pressure have been much improved. You should continue to monitor your blood pressure and heart rate at home. Initially the metoprolol can make you feel a little tired, but if having any worsening dizziness/lightheadedness or recurrence of symptoms please return to the ER. As discussed, untreated sleep apnea can also be contributing to elevated blood pressures and would recommend following up with PCP about getting repeat testing/new machine vs cleaning solutions in the meantime. Your A1c was checked and you are not diabetic. Cholesterol levels were borderline but as discussed you don't want to start lipitor now but should continue monitoring with your PCP and if without improvement on repeat would highly suggest starting. Please follow up with your primary care provider to consider an outpatient stress test for further evaluation. Please follow up with your PCP in the next 7-10 days to monitor your status after discharge. Your spleen was incidentally enlarged on imaging of the chest (negative for blood clot) but did not show any enlarged lymph nodes and can be followed up outpatient. Please return to the ER with any fever/chest pain, shortness of breath or for any other symptoms concerning for you. Take care! Pending Studies at Discharge: No Stand-Alone Forms: [facility] Medications and DC Order Prescriptions: New metoprolol tartrate 25 mg Tablet 25 mg PO BID Qty: 60 0RF Continued pantoprazole [Protonix] 40 mg tablet,delayed release (DR/EC) 40 mg PO BID 30 Days Qty: 60 5RF epinephrine [EpiPen] 0.3 mg/0.3 mL auto-injector 0.3 ml IM UD PRN (Reason: Allergic Reaction) Discharge Orders: Discharge Order (Routine); Ordered 03/28/22 Ordered By: Jes Connell Admission Data Admit Date/Time: 03/26/22 23:03 Attending Provider: Devante Medrano Admit Provider: Kiel Johnson Primary Care Provider: Hector Cottrell Other Providers: Kiel Johnson ; Jenny Todd Other Interventions: Discharge Summary Assessment (RN) Last Done: 03/28/22 16:30 Supervising Physician Co-Signing Physician Notes Attending Attestation & Discharge Note: Pt seen/examined, chart reviewed, care plan d/w LISBETH Connell. I agree w/ the thomason components of her documentation. 47yo male with chronic pain syndrome, intrathecal pain pump, GERD, HTN - presented with chest pain, neck pain, arm numbness, and marked elevation of his BP (190 SBP at ER presentation). Multiple troponins negative. Stress echo negative. Tele negative. Chest pain may have been 2nd to the elevated blood pressure. Can't rule out GERD. Incidentally he had mild splenomegaly on CTA chest. Etiology uncertain. He did state that he had been having some intermittent discomfort in the LUQ. Discharge exam: gen - NAD neck - no JVD heart - RRR, s1 s2, no murmur lungs - CTA b/l abd - soft, minimal tenderness LUQ, BS+, intrathecal pain pump left side of abdomen palpable ext - no edema, pulses 2+ b/l Metoprolol added for HTN. will need f/u of splenomegaly. Devante Medrano MD Coding Level of Care Code 64475 OBS Care - Discharge Diagnoses Retrosternal chest pain R07.2 Neck pain M54.2 Hypertension I10 Cervical postlaminectomy syndrome M96.1 GERD (gastroesophageal reflux disease) K21.9 Presence of intrathecal pump Z96.89 Sleep apnea G47.30 Splenomegaly R16.1
--- NOTE | 2022-03-28 13:47 | Electrocardiogram Report ---
Test Reason : Blood Pressure : / mmHG Vent. Rate : 085 BPM Atrial Rate : 085 BPM P-R Int : 152 ms QRS Dur : 078 ms QT Int : 350 ms P-R-T Axes : 045 043 044 degrees QTc Int : 416 ms Normal sinus rhythm Normal ECG When compared with ECG of 22-APR-2021 09:39, No significant change Confirmed by Sam Kerns ([id number]) on 03/28/2022 1:47:04 PM Referred By: REFERRED SELF Confirmed By:Sam Kerns
--- NOTE | 2022-03-28 13:54 | Electrocardiogram Report ---
Test Reason : Blood Pressure : / mmHG Vent. Rate : 056 BPM Atrial Rate : 056 BPM P-R Int : 164 ms QRS Dur : 084 ms QT Int : 408 ms P-R-T Axes : 026 050 034 degrees QTc Int : 393 ms Sinus bradycardia Otherwise normal ECG When compared with ECG of 26-MAR-2022 20:35, (unconfirmed) Vent. rate has decreased BY 29 BPM Confirmed by Sam Kerns ([id number]) on 03/28/2022 1:54:21 PM Referred By: REFERRED SELF Confirmed By:Sam Kerns
--- NOTE | 2022-03-28 18:01 | XCELERA ---
[id number]
== END 2022-03-28 17:35 | disposition home or self-care (01) ==
LOC: ED 20:27 → 2S 20:27 → SUATTDRO 23:03 → 2S 03-27 01:19
DX: F45.42 Pain disorder with related psychological factors; F33.1 Major depressive disorder, recurrent, moderate; G47.30 Sleep apnea, unspecified; Z88.8 Allergy status to other drugs, medicaments and biological substances; R07.2 Precordial pain; I10 Essential (primary) hypertension; K21.9 Gastro-esophageal reflux disease without esophagitis; Z91.030 Bee allergy status; M54.2 Cervicalgia; Z96.89 Presence of other specified functional implants; M96.1 Postlaminectomy syndrome, not elsewhere classified